=== PATIENT | male | born 1975 ===

== ENCOUNTER 2017-07-12 16:27 | Inpatient (IN) | payer OTHER ==
--- NOTE | 2017-07-12 16:59 | ED PDOC ---
Arrival/HPI - General Chief Complaint: Chest Pain Time Seen by Provider: 07/12/17 16:29 Historian: Patient - History of Present Illness Narrative History of Present Illness (Text): 07/12/17 17:00 42 year old male, with past medical history of seizure and anxiety, presents to the Emergency department complaining of chest pain and shortness of breath since last few days. Patient informs worsening symptoms associated with flu- like symptoms since yesterday, when he had a temperature of 102 fever. Patient informs visiting an Urgent Care, who referred him to the Emergency department. Patient denies any nausea, vomiting, diarrhea, abdominal pain, or any other complaints. Patient informs difficulty working last night. PMD: Dr. Miranda Time/Duration: Other (past few days) Symptom Onset: Gradual Quality: Aching Past Medical History - Provider Review Nursing Documentation Reviewed: Yes - Infectious Disease Hx of Infectious Diseases: None - Neurological Hx Seizures: Yes - Psychiatric Hx Substance Use: No - Surgical History Hx Orthopedic Surgery: Yes Hx Tonsillectomy: Yes - Anesthesia Hx Anesthesia: No Family/Social History - Physician Review Nursing Documentation Reviewed: Yes Family/Social History: No Known Family HX Smoking Status: Unknown If Ever Smoked Hx Alcohol Use: No Hx Substance Use: No Allergies/Home Meds Allergies/Adverse Reactions: Allergies No Known Allergies Allergy (Verified 07/12/17 16:47) Home Medications: Home Meds Medication Instructions Recorded Confirmed ALPRAZolam [Xanax] 1 mg PO PRN PRN 07/12/17 07/12/17 Lamotrigine [Lamictal] 150 mg PO BID 07/12/17 07/12/17 Meloxicam [Mobic] 15 mg PO DAILY 07/12/17 07/12/17 oxyCODONE [oxyCODONE Immediate 0 mg PO PRN PRN 07/12/17 07/12/17 Release Tab] Review of Systems - Physician Review All systems were reviewed & negative as marked: Yes - Review of Systems Constitutional: Fevers Respiratory: SOB Cardiovascular: Chest Pain Gastrointestinal: absent: Abdominal Pain, Diarrhea, Nausea, Vomiting Physical Exam Vital Signs Reviewed: Yes Vital Signs Temp Pulse Resp BP Pulse Ox 07/12/17 21:23 87 18 127/72 96 07/12/17 20:32 90 20 134/85 97 07/12/17 19:30 94 H 18 129/59 L 96 07/12/17 19:27 110 H 134/85 07/12/17 18:49 113 H 20 122/54 L 99 07/12/17 17:40 118 H 20 120/74 98 07/12/17 16:40 101.6 F H 112 H 20 119/70 98 Temperature: Febrile Blood Pressure: Normal Pulse: Tachycardic Respiratory Rate: Normal Appearance: Positive for: Well-Appearing, Non-Toxic, Comfortable Pain Distress: None Mental Status: Positive for: Alert and Oriented X 3 - Systems Exam Head: Present: Atraumatic, Normocephalic Pupils: Present: PERRL Extroacular Muscles: Present: EOMI Conjunctiva: Present: Normal Mouth: Present: Moist Mucous Membranes Neck: Present: Normal Range of Motion Respiratory/Chest: Present: Clear to Auscultation, Good Air Exchange. No: Respiratory Distress, Accessory Muscle Use Cardiovascular: Present: Regular Rate and Rhythm, Normal S1, S2. No: Murmurs Abdomen: No: Tenderness, Distention, Peritoneal Signs Back: Present: Normal Inspection Upper Extremity: Present: Normal Inspection. No: Cyanosis, Edema Lower Extremity: Present: Normal Inspection. No: Edema Neurological: Present: GCS=15, CN II-XII Intact, Speech Normal Skin: Present: Warm, Dry, Normal Color. No: Rashes Psychiatric: Present: Alert, Oriented x 3, Normal Insight, Normal Concentration Medical Decision Making ED Course and Treatment: 07/12/17 16:50 Impression: 42 year old male presents to the Emergency department for chest pain , shortness of breath and flu-like symptoms. Differential Diagnosis included but are not limited to: Perimyocarditis Plan: -- EKG -- Labs -- Chest X-ray -- Urinalysis -- Reassess and disposition Progress Notes: 07/12/17 16:50 EKG: Ordered, reviewed, and independently interpreted the EKG. Rate : 104 BPM Rhythm : Sinus Tachycardia. Interpretation : Non-specific ST/T wave changes. Comparison : EKG performed in Urgent Care shows sinus tachycardia at 119, questionable ST elevation. 07/16/17 08:[address] quinn on arrival. ekg and hx more consistent with pericarditis. will not activate code heart. later trop resulted positive. case rediscussed withfabiano quinn, requests lovenox, bblocker, asa. accetpd by icu. bedside us no pericardail effusion - Lab Interpretations Microbiology Results: Microbiology Results 07/12/17 17:10 Blood Blood Culture - Preliminary NO GROWTH AFTER 3 DAYS 07/12/17 16:50 Blood Blood Culture - Preliminary NO GROWTH AFTER 3 DAYS Lab Results: 07/12/17 17:10 07/12/17 17:10 Lab Results 07/12/17 17:10: Sodium 142, Potassium 3.5 L, Chloride 101, Carbon Dioxide 25, Anion Gap 19, BUN 11, Creatinine 0.8, Est GFR ( Amer) > 60, Est GFR (Non- Af Amer) > 60, Random Glucose 114 H, Calcium 10.2, Magnesium 1.9, Total Bilirubin 0.3, AST 58, ALT 82 H, Alkaline Phosphatase 102, Lactate Dehydrogenase 580, Total Creatine Kinase 314 H, CK-MB (CK-2) 10.0 H, CK-MB (CK-2 ) % 3.2 H, Troponin I 3.03 H*, NT-Pro-B Natriuret Pep 683 H, Total Protein 8.4 H , Albumin 4.7, Globulin 3.7, Albumin/Globulin Ratio 1.2, Lipase 71 07/12/17 17:10: PT 13.5 H, INR 1.18 H, APTT 28.8, D-Dimer, Quantitative 375 H 07/12/17 17:10: WBC 14.0 H, RBC 4.95, Hgb 15.2, Hct 43.6, MCV 88.1, MCH 30.7, MCHC 34.9, RDW 12.3, Plt Count 246, MPV 11.1 H, Gran % 52.9, Lymph % (Auto) 28.2 , Patrick % (Auto) 18.0 H, Eos % (Auto) 0.6 L, Baso % (Auto) 0.3, Gran # 7.42 H, Lymph # (Auto) 4.0 H, Patrick # (Auto) 2.5 H, Eos # (Auto) 0.1, Baso # (Auto) 0.04 07/12/17 17:10: Influenza Typ A,B (EIA) Negative for flu a/b - RAD Interpretation Narrative RAD Interpretations (Text): 07/12/17 18:11 Chest X-ray reviewed by radiologist, shows no active pulmonary disease. Radiology Orders: 07/12/17 16:50 CHEST PORTABLE [RAD] Stat 07/12/17 18:17 ANGIO CHEST PE PROTOCOL [CT] Stat - Medication Orders Current Medication Orders: Discontinued Medications Acetaminophen (Tylenol 325mg Tab) 975 mg PO STAT STA Stop: 07/12/17 17:09 Last Admin: 07/12/17 17:16 Dose: 975 mg MAR Pain/Vitals Document 07/12/17 17:16 SZXochitl (Rec: 07/12/17 17:17 [id number]) Pain Reassessment Is This A Pain ReAssessment? No Sleep Is patient sleeping during reassessment? No Presence of Pain Presence of Pain Yes Pain Scale Used Pain Scale Used Numeric Location Description Intermittent Intensity 4 Re-Assess: MAR Pain/Vitals Document 07/12/17 18:16 SZA (Rec: 07/12/17 19:30 A [id number]) Pain Reassessment Is This A Pain ReAssessment? Yes Sleep Is patient sleeping during reassessment? No Presence of Pain Presence of Pain Yes Pain Scale Used Pain Scale Used Numeric Location Intensity 2 Scale Used Numeric Acetaminophen (Tylenol 325mg Tab) 650 mg PO Q6H PRN PRN Reason: Fever >100.4 F Alprazolam (Xanax) 0.5 mg PO TID PRN; Protocol PRN Reason: Anxiety Last Admin: 07/13/17 21:38 Dose: 0.5 mg Behavioural Document 07/13/17 21:38 SSE (Rec: 07/13/17 21:38 SSE [id number]) Maintenance Maintenance Dose Yes Aspirin (Aspirin) 325 mg PO STAT STA Stop: 07/12/17 18:21 Last Admin: 07/12/17 18:30 Dose: Atorvastatin Calcium (Lipitor) 20 mg PO DIN BRIAN Last Admin: 07/13/17 17:11 Dose: 20 mg Clopidogrel Bisulfate (Plavix) 300 mg PO STAT STA Stop: 07/13/17 09:16 Last Admin: 07/13/17 09:23 Dose: 300 mg Enoxaparin Sodium (Lovenox) 90 mg SC STAT STA PRN Reason: Protocol Stop: 07/12/17 19:04 Last Admin: 07/12/17 19:29 Dose: 90 mg Subcutaneous Administrations Document 07/12/17 19:29 SS (Rec: 07/12/17 19:30 SS [id number]) Injection Site MAR Injection Site Right Abdomen Charges for Administration # of Subcutaneous Administrations 1 Doxycycline Hyclate 100 mg/ (Sodium Chloride) 100 mls @ 100 mls/hr IVPB STAT STA PRN Reason: Protocol Stop: 07/12/17 19:54 Last Admin: 07/12/17 20:34 Dose: 100 mls/hr eMAR Start Stop Document 07/12/17 20:34 SS (Rec: 07/12/17 20:34 SS [facility] [id number]) Intravenous Solution Start Date 07/12/17 Start Time 20:34 End Date 07/12/17 End time 21:34 Total Infusion Time 60 Ceftriaxone Sodium (Rocephin 1 Gram Ivpb) 1 gm in 100 mls @ 100 mls/hr IVPB STAT STA PRN Reason: Protocol Stop: 07/12/17 19:54 Last Admin: 07/12/17 19:28 Dose: 100 mls/hr eMAR Start Stop Document 07/12/17 19:28 SS (Rec: 07/12/17 19:28 SS [facility] [id number]) Intravenous Solution Start Date 07/12/17 Start Time 19:28 End Date 07/12/17 End time 20:28 Total Infusion Time 60 Sodium Chloride (Sodium Chloride 0.9%) 1,000 mls @ 100 mls/hr IV .Q10H [facility] Stop: 07/13/17 18:00 Last Admin: 07/13/17 21:33 Dose: 100 mls/hr eMAR Start Stop Document 07/13/17 21:33 SSE (Rec: 07/13/17 21:33 SSE [id number]) Intravenous Solution Start Date 07/13/17 Start Time 21:33 Potassium Chloride (Potassium Chloride 20 Meq/100 Ml) 20 meq in 100 mls @ 50 mls/hr IVPB ONCE ONE Stop: 07/12/17 21:14 Last Admin: 07/12/17 22:43 Dose: 50 mls/hr eMAR Start Stop Document 07/12/17 22:43 JPATRICIA (Rec: 07/12/17 22:44 YESSI [facility]) Intravenous Solution Start Date 07/12/17 Start Time 22:44 End Date 07/13/17 End time 00:44 Total Infusion Time 120 Doxycycline Hyclate 100 mg/ (Sodium Chloride) 100 mls @ 100 mls/hr IVPB Q12 BRIAN PRN Reason: Protocol Last Admin: 07/13/17 21:34 Dose: 100 mls/hr eMAR Start Stop Document 07/13/17 21:34 SSE (Rec: 07/13/17 21:34 SSE [id number]) Intravenous Solution Start Date 07/13/17 Start Time 21:34 Ceftriaxone Sodium (Rocephin 1 Gram Ivpb) 1 gm in 100 mls @ 100 mls/hr IVPB DAILY BRIAN PRN Reason: Protocol Last Admin: 07/13/17 09:18 Dose: 100 mls/hr eMAR Start Stop Document 07/13/17 09:18 JFG (Rec: 07/13/17 09:18 JFG [facility] [place] [id number]) Intravenous Solution Start Date 07/13/17 Start Time 09:18 End Date 07/13/17 End time 10:18 Total Infusion Time 60 Ibuprofen (Motrin Tab) 600 mg PO ONCE ONE Stop: 07/14/17 08:13 Last Admin: 07/14/17 08:31 Dose: 600 mg MAR Pain/Vitals Document 07/14/17 08:31 JUR (Rec: 07/14/17 08:31 JUR [facility] [id number]) Pain Reassessment Is This A Pain ReAssessment? No Sleep Is patient sleeping during reassessment? No Presence of Pain Presence of Pain Yes Pain Scale Used Pain Scale Used Numeric Location Pain Location Body Technical Project Manager Description Constant Intensity 5 Scale Used Numeric Pain Behavior Facial Grimacing Aggravating Factors None Alleviating Factors Medication Indomethacin (Indocin) 50 mg PO TID [facility] Last Admin: 07/14/17 15:16 Dose: 50 mg MAR Pain Assessment Document 07/14/17 15:16 JUR (Rec: 07/14/17 15:16 JUR [facility] [place] [id number]) Pain Reassessment Is this a pain reassessment? No Sleep Is patient sleeping during reassessment? No Presence of Pain Presence of Pain No Lamotrigine (Lamictal) 150 mg PO BID [facility] Last Admin: 07/14/17 09:53 Dose: 150 mg Behavioural Document 07/14/17 09:53 JUR (Rec: 07/14/17 09:54 JUR [facility] [place] [id number]) Maintenance Maintenance Dose Yes Metoprolol Tartrate (Lopressor) 25 mg PO STAT STA Stop: 07/12/17 19:08 Last Admin: 07/12/17 19:27 Dose: 25 mg MAR Pulse and Blood Pressure Document 07/12/17 19:27 SS (Rec: 07/12/17 19:28 SS [facility] [id number]) Pulse Pulse Rate (60-90) 110 Blood Pressure Blood Pressure (100/60-150/90) 134/85 Metoprolol Tartrate (Lopressor) 25 mg PO BID [facility] Last Admin: 07/14/17 09:55 Dose: 25 mg MAR Pulse and Blood Pressure Document 07/14/17 09:55 JUR (Rec: 07/14/17 09:55 JUR [facility] [id number]) Pulse Pulse Rate (60-90) 90 Blood Pressure Blood Pressure (100/60-150/90) 117/73 Oseltamivir Phosphate (Tamiflu) 75 mg PO BID [facility] PRN Reason: Protocol Oseltamivir Phosphate (Tamiflu Cap) 75 mg PO BID [facility] PRN Reason: Protocol Last Admin: 07/14/17 09:53 Dose: 75 mg Pantoprazole Sodium (Protonix Inj) 40 mg IVP DAILY [facility] Last Admin: 07/14/17 09:56 Dose: 40 mg IVP Administration Document 07/14/17 09:56 JUR (Rec: 07/14/17 09:56 JUR [facility] [place] [id number]) Charges for Administration # of IVP Administrations 1 Pantoprazole Sodium (Protonix Ec Tab) 40 mg PO ACB [facility] - Scribe Statement The provider has reviewed the documentation as recorded by the Lisaibe Dimitri Khanna. All medical record entries made by the Lisaibfuentes were at my direction and personally dictated by me. I have reviewed the chart and agree that the record accurately reflects my personal performance of the history, physical exam, medical decision making, and the department course for this patient. I have also personally directed, reviewed, and agree with the discharge instructions and disposition. Disposition/Present on Arrival - Present on Arrival Any Indicators Present on Arrival: No History of DVT/PE: No History of Uncontrolled Diabetes: No Urinary Catheter: No History of Decub. Ulcer: No History Surgical Site Infection Following: None - Disposition Have Diagnosis and Disposition been Completed?: Yes Diagnosis: Myocarditis, Pericarditis, NSTEMI (non-ST elevated myocardial infarction) Disposition: HOSPITALIZED Disposition Time: 07:00 Condition: CRITICAL
--- NOTE | 2017-07-12 17:33 | RAD ---
HISTORY: Chest pain COMPARISON: No prior. FINDINGS: LUNGS: The lungs are clear. PLEURA: No significant pleural effusion identified, no pneumothorax apparent. CARDIOVASCULAR: Normal. OSSEOUS STRUCTURES: No significant abnormalities. VISUALIZED UPPER ABDOMEN: Normal. OTHER FINDINGS: None. IMPRESSION: No active pulmonary disease.
[2017-07-12 18:01] LABS: ALB/GLOB RATIO 1.2 (1.1-1.8); ALBUMIN 4.7 g/dL (3.0-4.8); ALT/SGPT 82 U/L (7-56); AST/SGOT 58 U/L (17-59); BLOOD UREA NITROGEN 11 mg/dL (7-21); CALCIUM 10.2 mg/dL (8.4-10.5); GFR AFRICAN-AMERICAN > 60; GFR NON-AFRICAN AMERICAN > 60; LIPASE 71 U/L (23-300)
[2017-07-12 18:04] LABS: BASO # 0.04 K/mm3 (0.0-2.0); BASO % 0.3 % (0.0-3.0); EOS # 0.1 (0.0-0.7); EOS % 0.6 % (1.5-5.0); GRAN # 7.42 (1.4-6.5); GRAN % 52.9 % (50.0-68.0); HEMOGLOBIN 15.2 g/dL (14.0-18.0); LYMPH % 28.2 % (22.0-35.0); MEAN CELL VOLUME 88.1 fl (80.0-105.0); MEAN CORPUSCULAR HEMOGLOBIN 30.7 pg (25.0-35.0); MEAN CORPUSCULAR HGB CONC 34.9 g/dl (31.0-37.0); MEAN PLATELET VOLUME 11.1 fl (7.0-11.0); MONO # 2.5 (0.1-0.6); RBC 4.95 10^6/uL (3.5-6.1); RED CELL DISTRIBUTION WIDTH 12.3 % (11.5-14.5)
[2017-07-12 18:12] LABS: INR 1.18 (0.93-1.08); PROTHROMBIN TIME 13.5 SECONDS (9.4-12.5)
[2017-07-12 18:13] LABS: PARTIAL THROMBOPLASTIN TIME 28.8 Seconds (25.1-36.5)
[2017-07-12 18:19] LABS: B-TYPE NATRIURETIC PEPTIDE 683 pg/mL (0-450); CK MB% 3.2 % (2.5-3.0)
[2017-07-12] MEDS ORDERED: Iohexol 350 MG/100 ML VIAL ONE (18:21)
[2017-07-12 18:50] LABS: TROPONIN I 3.03 ng/mL
[2017-07-12] MEDS ORDERED: cefTRIAXone 1 gm 1 GM/100 ML BAG IVPB STA (18:55)
[2017-07-12] MEDS ORDERED: Enoxaparin 100 mg Syringe SC STA (19:03)
--- NOTE | 2017-07-12 20:06 | CP.PCM.HP ---
History of Present Illness - History of Present Illness History of Present Illness: This is 42yo with past medical history of anxiety and seizures was sent to the ED by urgent care for EKG changes. Patient noted to have fever for 3 days. He noticed he was having alternating fever/chills. He checked his temp and it was 102. He tried to drink cold water to lower his temp and OTC Excedrin. Patient said he had substernal chest pain for 1-2 days and it did not radiate, but did notice exertional dyspnea. He thought it was secondary to acid reflux and took Tums and Pepto bismal with some mild relief. He denies any nausea/vomiting/ diarrhea, numbness/tingling, vision changes, dysuria, hematuria, cough, nasal congestion shortness of breath at rest, or recent travel. Patient reports some sick contact at work who was coughing. He also reports that have been having a "mice problem" at work and had mouse droppings on his desk and had to clean them off. Past medical history: Anxiety, seizures Past surgical history: tonsillectomy, R ankle Home meds: Lamictal, Xanax 1mg prn Allergies: NKDA Social history: Denies EtOH, drug or tobacco use. Lives with family Family history: Mom: CAD, thyroid disease. Maternal grandma: Leukemia PMD: Dr. Miranda Cardiology: Dr. Owusu Present on Admission - Present on Admission Any Indicators Present on Admission: No Review of Systems - Review of Systems All systems: reviewed and no additional remarkable complaints except Review of Systems: As per HPI Past Patient History - Infectious Disease Hx of Infectious Diseases: None - Past Social History Smoking Status: Unknown If Ever Smoked - NEUROLOGICAL Hx Seizures: Yes - PSYCHIATRIC Hx Substance Use: No - SURGICAL HISTORY Hx Orthopedic Surgery: Yes Hx Tonsillectomy: Yes - ANESTHESIA Hx Anesthesia: No Meds Allergies/Adverse Reactions: Allergies Allergy/AdvReac Type Severity Reaction Status Date / Time No Known Allergies Allergy Verified 07/12/17 16:47 Physical Exam - Constitutional Appears: No Acute Distress - Head Exam Head Exam: ATRAUMATIC, NORMAL INSPECTION, NORMOCEPHALIC - Eye Exam Eye Exam: Normal appearance, PERRL Pupil Exam: NORMAL ACCOMODATION, PERRL - ENT Exam ENT Exam: Mucous Membranes Moist - Respiratory Exam Respiratory Exam: Clear to Auscultation Bilateral, NORMAL BREATHING PATTERN. absent: Rales, Rhonchi, Wheezes - Cardiovascular Exam Cardiovascular Exam: Tachycardia, REGULAR RHYTHM, Rubs, +S1, +S2. absent: Gallop, Systolic Murmur - GI/Abdominal Exam GI & Abdominal Exam: Normal Bowel Sounds, Soft. absent: Mass, Rebound, Rigid, Tenderness - Extremities Exam Extremities exam: Positive for: normal inspection. Negative for: calf tenderness, pedal edema - Neurological Exam Neurological exam: Alert, CN II-XII Intact, Oriented x3 - Psychiatric Exam Psychiatric exam: Normal Affect, Normal Mood - Skin Skin Exam: Dry, Normal Color, Warm Results - Vital Signs Recent Vital Signs: Last Vital Signs Temp 101.6 F H 07/12/17 16:40 Pulse 110 H 07/12/17 19:27 Resp 20 07/12/17 18:49 BP 134/85 07/12/17 19:27 Pulse Ox 99 07/12/17 18:49 - Labs Result Diagrams: 07/12/17 17:10 07/12/17 17:10 Assessment & Plan - Assessment and Plan (Free Text) Assessment: This is a 42yo male with past medical history of seizure and anxiety who came to ED for chest pain x 3 days while having fevers. Patient was found to have diffuse ST elevations and elevated troponin. This can be secondary to myocarditis secondary to viral illness. Plan: 1. Chest pain - secondary to PE v. myocarditis v. pericarditis from viral prodrome - evaluated by ICU at bedside- no pericardial effusion seen on bedside echo - Cardio consulted- Dr. Coe discussed case with Dr. Dawn - Troponin 3.03- will trend - EKG showed diffuse ST elevations - CXR negative - CTA normal- no evidence of PE - lactate normal - Given Rocephin and Doxy in ED- Continue Tamiflu - ID consulted - Will check for Coxsackie virus, influenza as cause - Tylenol prn fever - s/p therapeutic dose of Lovenox - Echo ordered - Procal, U/A, urine culture and blood culture pending - UDS pending 2. Hx of seizures - Will check Lamictal level - Restart Home Lamictal 3. Hx of Anxiety - Xanax Prn GI ppx: Protonix DVT ppx: Lovenox/SCDs Case seen, discussed and reviewed with attending. Lori Humphrey PGY2 - Date & Time Date: 07/12/17 Time: 21:33
[2017-07-12 20:25] LABS: VENOUS BLOOD GAS PO2 116 mm/Hg (30-55); VENOUS BLOOD PH 7.46 (7.32-7.43)
[2017-07-12] MEDS: Sodium Chloride 0.9% 1,000 ML IV SCH (20:34)
[2017-07-12 21:50] LABS: URINE BILIRUBIN NEGATIVE (NEGATIVE); URINE BLOOD NEGATIVE (NEGATIVE); URINE GLUCOSE (UA) NEGATIVE (NEGATIVE); URINE LEUKOCYTE ESTERASE NEGATIVE Leu/uL (NEGATIVE); URINE PROTEIN NEGATIVE mg/dL (<30 mg/dL); URINE UROBILINOGEN 0.2 E.U./dL (<1 E.U./dL)
[2017-07-12 21:52] LABS: URINE APPEARANCE CLEAR (CLEAR); URINE COLOR YELLOW (YELLOW)
[2017-07-12 22:14] LABS: BARBITURATES, UR NEGATIVE (NEGATIVE); BENZODIAZEPINES, UR NEGATIVE (NEGATIVE); OPIATES, UR NEGATIVE (NEGATIVE); PHENCYCLIDINE, UR NEGATIVE (NEGATIVE)
[2017-07-12 23:32] VITALS: BMI 36.0
[2017-07-13 00:29] LABS: CK MB% 2.9 % (2.5-3.0); CK-MB 6.8 ng/mL (0.0-3.6); TROPONIN I 1.94 ng/mL
--- NOTE | 2017-07-13 01:31 | CON ---
DATE: 07/12/2017 HISTORY OF PRESENT ILLNESS: The patient is a 42-year-old gentleman with history of anxiety and seizure disorder which, however, has been controlled for many years on Lamictal, who presented this time to [facility] ER after 2 days of malaise, fatigue, muscle ache, pleuritic chest pain. His symptoms started 2 days ago when he felt very weak. His fatigue prevented him from fully participate in his work duties and daily activities. Later that day, he starts feeling subjective fever and his symptoms since then substantially worsened. Later next day, he confirmed having fever, some muscle aches, and started to have pleuritic chest pain. The pleuritic chest pain he describes as very sharp pain related to deep inspiration and lasting for hours preventing him from taking a deep breath. The patient reports that he also has some shortness of breath. The pain did not radiate to any other part of his body. He also reports having some epigastric fullness; however, no tenderness. He denies nausea, vomiting, diarrhea, or constipation. The patient was also unable to sleep last night due to his fever and discomfort associated with pleuritic chest pain and associated symptoms. PAST MEDICAL HISTORY: Anxiety and seizure disorder, currently controlled. ALLERGIES NKDA. MEDICATIONS AT HOME: Mobic, Xanax, Lamictal, oxycodone. SOCIAL HISTORY: No alcohol or illicit drug abuse. No tobacco smoking. FAMILY HISTORY: Noncontributory. REVIEW OF SYSTEMS: Review of 12-organ system other than mentioned in the history of present illness is negative. PHYSICAL EXAMINATION: VITAL SIGNS: Temperature 101.6, blood pressure 122/54, heart rate 113, respiratory rate 20, oxygen saturation 99% on room air. HEENT: Head and neck atraumatic. LUNGS: Clear to auscultation bilaterally. HEART: Regular rate and rhythm. S1, S2 normal. ABDOMEN: Soft, nontender, and nondistended. MUSCULOSKELETAL: No C/C/E. NEUROLOGIC: The patient moves all extremities spontaneously. SKIN: Moist. No rash. PSYCH: The patient is alert and oriented x3. Somewhat anxious. LABORATORY DATA: WBC 14, hemoglobin 15.2, and platelet count 246. Sodium 142, potassium 3.5 (supplemented), chloride 101, carbon dioxide 25. BUN 11, creatinine 0.8. Glucose 114. Troponin 3.03, CK-MB 10, CPK 314, slightly elevated. ALT 82, AST 58, total bilirubin 0.3. Albumin 4.7, lipase 71. INR 1.18 and D-dimer is 375. Rapid influenza test negative. EKG showed diffuse ST-elevation in all leads; however, not in ischemic pattern. Bedside echocardiogram did not reveal any pericardial effusion. No severe left ventricular systolic dysfunction. Did not get good image of the right ventricle; however, does not appear to be hypocontractile or dilated. Chest x-ray, no active pulmonary disease. ASSESSMENT AND PLAN: This is a 42-year-old gentleman who presented with pleuritic chest pain, fever, malaise, fatigue, tiredness, and muscle aches in the setting of elevated troponin, BNP. While concern for acute coronary syndrome is there and cannot be discarded, possibility of viral myocarditis or septic cardiomyopathy due to other infectious origin appears to be more likely. The patient was started on IV fluids, antibiotic. Septic workup initiated. Blood culture, urine culture, procalcitonin were ordered. ER physician ordered CAT scan with PE protocol to rule out pulmonary embolism, especially in the setting of elevated D-dimers and pleuritic chest pain as well as negative chest x-ray. That will also allow to better evaluate lung parenchyma to rule out community-acquired pneumonia despite negative chest x-ray. In terms of possibility of ACS, patient will be on TAC, bb. He got aspirin at home. Cardiology service is following him. Echo will be done and troponin trended. GI prophylaxis ccm time 40 min Preston Coe MD GARETH
[2017-07-13 06:53] LABS: HEMOGLOBIN 14.6 g/dL (14.0-18.0); MEAN CELL VOLUME 89.3 fl (80.0-105.0); MEAN CORPUSCULAR HEMOGLOBIN 30.7 pg (25.0-35.0); MEAN CORPUSCULAR HGB CONC 34.4 g/dl (31.0-37.0); RBC 4.76 10^6/uL (3.5-6.1); RED CELL DISTRIBUTION WIDTH 12.5 % (11.5-14.5); WHITE BLOOD COUNT 10.2 10^3/ul (4.5-11.0)
[2017-07-13 07:46] LABS: ALB/GLOB RATIO 1.2 (1.1-1.8); ALBUMIN 4.1 g/dL (3.0-4.8); ALT/SGPT 72 U/L (7-56); AST/SGOT 70 U/L (17-59); BLOOD UREA NITROGEN 11 mg/dL (7-21); CALCIUM 9.6 mg/dL (8.4-10.5); GFR AFRICAN-AMERICAN > 60; GFR NON-AFRICAN AMERICAN > 60
[2017-07-13 08:20] LABS: CK MB% 5.8 % (2.5-3.0); CK-MB 20.6 ng/mL (0.0-3.6); TROPONIN I 4.76 ng/mL
[2017-07-13 08:27] LABS: HDL CHOLESTEROL 34 mg/dL (29-60)
[2017-07-13] MEDS: Sodium Chloride 0.9% 1,000 ML IV SCH ×2 (08:35→21:33)
[2017-07-13 08:38] LABS: LDL CHOLESTEROL 133 mg/dL (0-129)
--- NOTE | 2017-07-13 09:03 | CT ---
PROCEDURE: CT Chest with contrast (Pulmonary Angiogram) HISTORY: cp elevated dimer COMPARISON: None available. TECHNIQUE: Axial computed tomography images were obtained of the chest in the pulmonary arterial phase of enhancement. Coronal and sagittal reformatted images were created and reviewed. Intravenous contrast dose: 100 mL Omnipaque 350 Radiation dose: Total exam DLP = 479.97 mGy-cm. This CT exam was performed using one or more of the following dose reduction techniques: Automated exposure control, adjustment of the mA and/or kV according to patient size, and/or use of iterative reconstruction technique. FINDINGS: PULMONARY ARTERIES: There are no filling defects in the central pulmonary arteries to suggest acute pulmonary embolism. AORTA: No acute findings. No thoracic aortic aneurysm. LUNGS: The lungs are clear. No nodule, mass or pulmonary consolidation. PLEURAL SPACES: No effusion or pneuomothorax. HEART: The heart is normal in size. No significant pericardial effusion. LYMPH NODES: No pathologic lymphadenopathy. BONES, CHEST WALL: Within normal limits for the patient's age. No fracture or destructive lesion OTHER FINDINGS: Unremarkable. IMPRESSION: No CTA evidence for acute pulmonary embolism. Clear lungs. A preliminary report was provided by [facility].
--- NOTE | 2017-07-13 09:21 | PN ---
DATE: 07/13/2017 SUBJECTIVE: The patient is seen at bedside. He is comfortable. He talks full sentences. He is not in respiratory or otherwise distress. Very mildly anxious, but otherwise night was uneventful. Pleuritic chest pain comes and goes. PHYSICAL EXAMINATION: VITAL SIGNS: Heart rate 103, oxygen saturation 98%, respiratory rate 17, blood pressure 122/52. Patient is afebrile. ENT: Head and neck atraumatic. LUNGS: Clear to auscultation bilaterally. HEART: Regular rate and rhythm. S1, S2 normal. ABDOMEN: Soft, nontender, nondistended. MUSCULOSKELETAL: No C/C/E. NEUROLOGIC: The patient moves all extremities spontaneously. SKIN: Moist. PSYCH: The patient is alert and oriented x3. LABORATORY DATA: WBC 10.2, hemoglobin 14.6, platelet count 238. Sodium 142, potassium 4, chloride 105, carbon dioxide 25, BUN 11, creatinine 0.7 and glucose 106. AST 70, ALT 72, total bilirubin 0.4. Troponin 1.94. Lactic acid is 1.2. Confirmatory influenza test is pending. Rapid is negative. U-tox screen is negative. Urinalysis is negative for leukocyte esterase and nitrites. MEDICATIONS: Tylenol p.r.n., Xanax p.r.n., Lamictal, Tamiflu, Protonix, normal saline 100 mL per hour (patient received metoprolol, doxycycline and ceftriaxone yesterday and we will continue antibiotics and metoprolol today). ASSESSMENT AND PLAN: This 42-year-old gentleman who presented with some pleuritic chest pain, elevation of troponin and B-type natriuretic peptid in the setting of fever, presentation concerning for myocarditis versus pericarditis. On bedside echocardiogram, no pericardial effusion was identified. Official echocardiogram is pending. Possibility of acute coronary syndrome could not be ruled out and patient will be going for coronary angiography by Dr. Dawn today morning (spoke with Dr. Dawn). Meanwhile, patient is on therapeutic anticoagulation, aspirin and beta-blockers. We will continue to target euvolemia, euglycemia, normothermia and oxygen saturation more than 90%. We will continue with gastrointestinal prophylaxis. Septic workup initiated. Procalcitonin is pending. Confirmatory influenza test and Coxsackie virus serology was ordered. ID services consult is pending. Addendum: spoke with Dr. Dawn--coronaries are clean; troponin elevation likely due to epicarditis-->NSAIDS started. ok to downgrade to tele ccm time 40 min Preston Coe MD [facility]
[2017-07-13] MEDS ORDERED: cefTRIAXone 1 gm 1 GM/100 ML BAG IVPB SCH (10:00)
--- NOTE | 2017-07-13 10:09 | CP.PCM.CON ---
History of Present Illness - History of Present Illness History of Present Illness: 42 year old male with PMH of seizure disorder, anxiety disorder, obesity with BMI 36, S/P tonsillectomy, S/P ligament surgery on right ankle came in to [facility] because he was sent from an Urgent care center with abnormal EKG findings. He has been not feeling well for about a week now, complaining of occasional neck pain but no headache. He was also getting more fatigued than usual. Last wednesday , he was apparently exposed to an office co-worker who was coughing and sneezing and now has been on sick leave since then. He also states that their office has had rodent issues and he apparently had contact with some rodent droppings on his desk last week while cleaning his desk. He then developed fever 2 days ago and a few hours later some chest pain which was continuous, worse when sitting up and better when lying down. He also started having dyspnea on exertion and chills. He denies nausea or vomiting, had some sore throat, some nasal congestion, no dysphagia, no abdominal pain, no diarrhea, no dysuria. In the ED, EKG showed some ST elevations and Troponins are positive. He was also found to be febrile in the ED and with leukocyotosis. Infectious diseases consult is requested to further evaluate and manage. Review of Systems - Review of Systems All systems: reviewed and no additional remarkable complaints except (as per HPI ) Past Patient History - Infectious Disease Hx of Infectious Diseases: None - Past Social History Smoking Status: Unknown If Ever Smoked - NEUROLOGICAL Hx Seizures: Yes - PSYCHIATRIC Hx Substance Use: No - SURGICAL HISTORY Hx Orthopedic Surgery: Yes Hx Tonsillectomy: Yes - ANESTHESIA Hx Anesthesia: No Meds Allergies/Adverse Reactions: Allergies Allergy/AdvReac Type Severity Reaction Status Date / Time No Known Allergies Allergy Verified 07/12/17 16:47 - Medications Medications: Current Medications Acetaminophen (Tylenol 325mg Tab) 650 mg PO Q6H PRN PRN Reason: Fever >100.4 F Sodium Chloride (Sodium Chloride 0.9%) 1,000 mls @ 100 mls/hr IV .Q10H BRIAN Last Admin: 07/12/17 20:34 Dose: 100 mls/hr Oseltamivir Phosphate (Tamiflu Cap) 75 mg PO BID BRIAN PRN Reason: Protocol Pantoprazole Sodium (Protonix Inj) 40 mg IVP DAILY BRIAN Physical Exam - Constitutional Appears: Non-toxic - Head Exam Head Exam: NORMAL INSPECTION - ENT Exam ENT Exam: Mucous Membranes Moist - Neck Exam Neck exam: Negative for: Lymphadenopathy, Meningismus - Respiratory Exam Respiratory Exam: absent: Rales, Rhonchi - Cardiovascular Exam Cardiovascular Exam: +S1, +S2 - GI/Abdominal Exam GI & Abdominal Exam: Soft. absent: Organomegaly, Tenderness - Extremities Exam Extremities exam: Negative for: pedal edema Additional comments: well healed surgical scars on right ankle Results - Vital Signs Recent Vital Signs: Last Vital Signs Temp 101.6 F H 07/12/17 16:40 Pulse 87 07/12/17 21:23 Resp 18 07/12/17 21:23 BP 127/72 07/12/17 21:23 Pulse Ox 96 07/12/17 21:23 - Labs Result Diagrams: 07/13/17 05:50 07/13/17 05:50 Labs: Laboratory Results - last 24 hr 07/12/17 07/12/17 07/12/17 20:21 21:30 21:30 pO2 116 H VBG pH 7.46 H VBG pCO2 36.0 L VBG HCO3 25.6 VBG Total CO2 26.7 VBG O2 Sat (Calc) 99.5 H VBG Base Excess 2.0 VBG Potassium 3.9 Sodium 138.0 Chloride 106.0 Glucose 120 H Lactate 1.2 FiO2 21.0 Venous Blood Potassium 3.9 Urine Color Yellow Urine Appearance Clear Urine pH 6.0 Ur Specific Valier 1.010 Urine Protein Negative Urine Glucose (UA) Negative Urine Ketones Negative Urine Blood Negative Urine Nitrate Negative Urine Bilirubin Negative Urine Urobilinogen 0.2 Ur Leukocyte Esterase Negative Urine Opiates Screen Negative Urine Methadone Screen Negative Ur Barbiturates Screen Negative Ur Phencyclidine Scrn Negative Ur Amphetamines Screen Negative U Benzodiazepines Scrn Negative U Oth Cocaine Metabols Negative U Cannabinoids Screen Negative Assessment & Plan - Assessment and Plan (Free Text) Plan: Assessment Systemic inflammatory response syndrome, R/O sepsis from myopericarditis ( probably viral less likely bacterial), R/O acute myocardial infarction seizure disorder anxiety disorder obesity with BMI 36 S/P tonsillectomy S/P ligament surgery on right ankle Plan Started the patient on Tamiflu since it is still Influenza season; patient has been started on Rocephin and Doxycycline although risk of bacterial exposure causing myocarditis is less - reviewed CT chest which does not show mediastinal lymphadenopathy (making rodent-related diseases such as tularemia much less likely) and no pneumonia, patient has not been outdoors making Lyme disease much less likely as well, and also Erlichia; will follow up blood cx for cardiac cath today and will follow up results Follow up Coxsackie work up, EBV and CMV studies will check HIV test will monitor clinically
--- NOTE | 2017-07-13 10:12 | CARD ---
APPROVED REPORT EKG Measurement Heart [id number] <Conclusion> Sinus tachycardia PRWP Mild ST elevations 2,3,F, V 4,6, r/o injury pattern, pericarditis, etc.
--- NOTE | 2017-07-13 10:17 | CARD ---
APPROVED REPORT EKG Measurement Heart [id number] <Conclusion> Sinus tachycardia Possible Left atrial enlargement ST elevations 2,3,F, V 4 - 6 Inferior- lateral infarct, possibly acute ACUTE DC
[2017-07-13] MEDS ORDERED: Lidocaine 2% Inj (20ml) ONE (10:47)
[2017-07-13] MEDS ORDERED: Midazolam 2 MG/2 ML VIAL ONE ×3 (10:47→12:12)
[2017-07-13] MEDS ORDERED: Phenylephrine 10 mg/ml Inj ONE (10:47)
[2017-07-13] MEDS ORDERED: Iodixanol 320 MG/ML 200 ML BOTTLE IV ONE (10:48)
[2017-07-13] MEDS ORDERED: Nitroglycerin 50mg in D5W 0 MG/0 ML BOTTLE IV ONE (10:48)
[2017-07-13] MEDS ORDERED: Iohexol 350mgl/ml 50 ML ONE (10:48)
[2017-07-13] MEDS ORDERED: Iodixanol 320 MG/ML 100 ML BOTTLE IV ONE (10:48)
--- NOTE | 2017-07-13 10:55 | CON ---
DATE: 07/12/2017 CARDIOLOGY CONSULTATION HISTORY: The patient is a 42-year-old male, who presented with substernal pleuritic-like chest discomfort since Wednesday. His symptoms are increased with inspiration. He was transferred here from the emergency center from [facility] emergency room. The patient's past medical history is notable for history of seizures. He is on oxycodone for questionable reasons. His cardiac risk factors include family history with a mother with coronary bypass surgery. No diabetes mellitus. No hypertension. No previous cardiac history. SOCIAL HISTORY: The patient does not smoke. REVIEW OF SYSTEMS: Fourteen-point review of systems is reviewed in detail. His symptoms are dominated by inspirational chest pain and positional chest pain, which is left him mildly short of breath. He denies bleeding history. No peptic ulcer disease. PHYSICAL EXAMINATION: VITAL SIGNS: Blood pressure is 114/82, the heart rate is in the 90s, normal sinus rhythm. NECK: Negative JVD. LUNGS: Without rales. HEART: Reveals S1, S2 without murmurs, without rubs. EXTREMITIES: Without clubbing, cyanosis, edema. LABORATORY DATA: EKG shows normal sinus rhythm with concave up ST elevations and ID depressions consistent with pericarditis. His laboratories: Hemoglobin is 14.6, the white count is 10.2. The chemistries: Troponins keep rising up to 4.76. The cholesterol is 208. IMPRESSION: 1. Chest pain. 2. High probability for pericarditis. 3. Possible myocarditis involvement. 4. Need to rule out coronary artery disease. PLAN: Given these findings, the patient has been treated with aspirin, anticoagulation as well as antibiotics. We will discuss with the patient about the possibility of catheterization depending on his response. Ilan Dawn MD
--- NOTE | 2017-07-13 11:34 | CP.CCUPN ---
<Sidney Enciso - Last Filed: 07/13/17 11:46> CCU Subjective - Physician Review Subjective (Free Text): Critical care progress note: Pt seen and examined at bedside. No acute events overnight. Pt complains of some pleuritic chest pain and sob. No other complaints. 12 Point ROS performed and neg other than stated above. 07/13/17 11:32 CCU Objective - Vital Signs / Intake & Output Vital Signs (Last 4 hours): Vital Signs Pulse Resp BP Pulse Ox 07/13/17 10:10 108 H 99 07/13/17 10:00 105 H 124/67 99 07/13/17 09:50 98 07/13/17 09:40 98 07/13/17 09:30 99 07/13/17 09:20 102 H 36 H 100 07/13/17 09:10 108 H 29 H 99 07/13/17 09:00 106 H 128/78 99 07/13/17 08:50 95 H 16 98 07/13/17 08:40 97 H 17 98 07/13/17 08:30 97 H 14 98 07/13/17 08:20 98 H 21 99 07/13/17 08:10 104 H 16 96 07/13/17 08:01 98 H 114/82 96 07/13/17 08:00 106 H 28 H 97 07/13/17 07:50 114 H 30 H 97 07/13/17 07:40 103 H 15 98 Intake and Output (Last 8hrs): Intake & Output 07/12/17 07/13/17 07/13/17 22:59 06:59 14:59 Intake Total 2000 Output Total 200 Balance 1800 Weight 223 lb 1.6 oz Intake: IV 1400 Left Antecubital 1400 Right Antecubital 0 Oral 600 Output: Urine 200 Urine, Voided 200 Other: # Bowel Movements 0 - Physical Exam Head: Positive for: Atraumatic, Normocephalic Pupils: Positive for: PERRL Extroacular Muscles: Positive for: EOMI Conjunctiva: Positive for: Normal Mouth: Positive for: Moist Mucous Membranes Neck: Positive for: Normal Range of Motion Respiratory/Chest: Positive for: Clear to Auscultation, Good Air Exchange. Negative for: Respiratory Distress, Accessory Muscle Use Cardiovascular: Positive for: Regular Rate and Rhythm, Normal S1, S2. Negative for: Murmurs Abdomen: Negative for: Tenderness, Distention, Peritoneal Signs Back: Positive for: Normal Inspection Upper Extremity: Positive for: Normal Inspection. Negative for: Cyanosis, Edema Lower Extremity: Positive for: Normal Inspection. Negative for: Edema Neurological: Positive for: GCS=15, CN II-XII Intact, Speech Normal Skin: Positive for: Warm, Dry, Normal Color. Negative for: Rashes Psychiatric: Positive for: Alert, Oriented x 3, Normal Insight, Normal Concentration - Medications Active Medications: Active Medications Generic Name Dose Route Start Last Admin Trade Name Freq PRN Reason Stop Dose Admin Acetaminophen 650 mg 07/12/17 21:33 Tylenol 325mg Tab PO Q6H PRN Fever >100.4 F Alprazolam 0.5 mg 07/12/17 23:18 07/12/17 23:47 Xanax PO 0.5 mg TID PRN Administration Anxiety Protocol Sodium Chloride 1,000 mls @ 100 mls/hr 07/12/17 19:15 07/13/17 08:35 Sodium Chloride 0.9% IV 100 mls/hr .Q10H BRIAN Administration Doxycycline Hyclate 100 mg/ 100 mls @ 100 mls/hr 07/13/17 10:00 07/13/17 10: 17 Sodium Chloride IVPB 100 mls/hr Q12 BRIAN Administration Protocol Ceftriaxone Sodium 1 gm in 100 mls @ 100 mls/hr 07/13/17 10:00 07/13/17 09:18 Rocephin 1 Gram Ivpb IVPB 100 mls/hr DAILY BRIAN Administration Protocol Lamotrigine 150 mg 07/13/17 10:00 07/13/17 09:18 Lamictal PO 150 mg BID BRIAN Administration Oseltamivir Phosphate 75 mg 07/12/17 19:17 07/13/17 09:18 Tamiflu Cap PO 75 mg BID BRIAN Administration Protocol Pantoprazole Sodium 40 mg 07/13/17 10:00 07/13/17 09:18 Protonix Inj IVP 40 mg DAILY BRIAN Administration - Patient Studies Lab Studies: Lab Studies 07/13/17 07/13/17 07/13/17 Range/Units 07:25 05:50 05:50 WBC 10.2 D (4.5-11.0) 10^3/ul RBC 4.76 (3.5-6.1) 10^6/uL Hgb 14.6 (14.0-18.0) g/dL Hct 42.5 (42.0-52.0) % MCV 89.3 (80.0-105.0) fl MCH 30.7 (25.0-35.0) pg MCHC 34.4 (31.0-37.0) g/dl RDW 12.5 (11.5-14.5) % Plt Count 238 (120.0-450.0) 10^3/uL MPV 11.0 (7.0-11.0) fl pO2 (30-55) mm/Hg VBG pH (7.32-7.43) VBG pCO2 (40-60) VBG HCO3 (21-28) mmol/l VBG Total CO2 (22-28) mmol.L VBG O2 Sat (Calc) (40-65) % VBG Base Excess (0.0-2.0) mmol/L VBG Potassium (3.6-5.2) mmol/L Sodium 142 (132-148) mmol/L Chloride 105 (98-107) mmol/L Glucose (75-110) mg/dl Lactate (0.7-2.1) mmol/L FiO2 % Potassium 4.0 (3.6-5.0) mmol/L Carbon Dioxide 25 (21-33) mmol/L Anion Gap 16 (10-20) BUN 11 (7-21) mg/dL Creatinine 0.7 L (0.8-1.5) mg/dl Est GFR ( Amer) > 60 Est GFR (Non-Af Amer) > 60 Random Glucose 106 (70-110) mg/dL Calcium 9.6 (8.4-10.5) mg/dL Phosphorus 3.6 (2.5-4.5) mg/dL Magnesium 2.2 (1.7-2.2) mg/dL Total Bilirubin 0.4 (0.2-1.3) mg/dL AST 70 H D (17-59) U/L ALT 72 H (7-56) U/L Alkaline Phosphatase 89 (38-126) U/L Lactate Dehydrogenase 590 (333-699) U/L Total Creatine Kinase 356 H (35-230) U/L CK-MB (CK-2) 20.6 H (0.0-3.6) ng/mL CK-MB (CK-2) % 5.8 H (2.5-3.0) % Troponin I 4.76 H* D ng/mL Total Protein 7.7 (5.8-8.3) g/dL Albumin 4.1 (3.0-4.8) g/dL Globulin 3.5 gm/dL Albumin/Globulin Ratio 1.2 (1.1-1.8) Triglycerides 155 (35-160) mg/dL Cholesterol 208 H (130-200) mg/dL LDL Cholesterol Direct 133 H (0-129) mg/dL HDL Cholesterol 34 (29-60) mg/dL Venous Blood Potassium (3.6-5.2) mmol/L Urine Color (YELLOW) Urine Appearance (CLEAR) Urine pH (4.7-8.0) Ur Specific [place] (1.005-1.035) Urine Protein (<30 mg/dL) mg/dL Urine Glucose (UA) (NEGATIVE) mg/dL Urine Ketones (NEGATIVE) mg/dL Urine Blood (NEGATIVE) Urine Nitrate (NEGATIVE) Urine Bilirubin (NEGATIVE) Urine Urobilinogen (<1 E.U./dL) E.U./dL Ur Leukocyte Esterase (NEGATIVE) Enrico/uL Urine Opiates Screen (NEGATIVE) Urine Methadone Screen (NEGATIVE) Ur Barbiturates Screen (NEGATIVE) Ur Phencyclidine Scrn (NEGATIVE) Ur Amphetamines Screen (NEGATIVE) U Benzodiazepines Scrn (NEGATIVE) U Oth Cocaine Metabols (NEGATIVE) U Cannabinoids Screen (NEGATIVE) 07/12/17 07/12/17 07/12/17 Range/Units 23:55 21:30 21:30 WBC (4.5-11.0) 10^3/ul RBC (3.5-6.1) 10^6/uL Hgb (14.0-18.0) g/dL Hct (42.0-52.0) % MCV (80.0-105.0) fl MCH (25.0-35.0) pg MCHC (31.0-37.0) g/dl RDW (11.5-14.5) % Plt Count (120.0-450.0) 10^3/uL MPV (7.0-11.0) fl pO2 (30-55) mm/Hg VBG pH (7.32-7.43) VBG pCO2 (40-60) VBG HCO3 (21-28) mmol/l VBG Total CO2 (22-28) mmol.L VBG O2 Sat (Calc) (40-65) % VBG Base Excess (0.0-2.0) mmol/L VBG Potassium (3.6-5.2) mmol/L Sodium (132-148) mmol/L Chloride (98-107) mmol/L Glucose (75-110) mg/dl Lactate (0.7-2.1) mmol/L FiO2 % Potassium (3.6-5.0) mmol/L Carbon Dioxide (21-33) mmol/L Anion Gap (10-20) BUN (7-21) mg/dL Creatinine (0.8-1.5) mg/dl Est GFR ( Amer) Est GFR (Non-Af Amer) Random Glucose (70-110) mg/dL Calcium (8.4-10.5) mg/dL Phosphorus (2.5-4.5) mg/dL Magnesium (1.7-2.2) mg/dL Total Bilirubin (0.2-1.3) mg/dL AST (17-59) U/L ALT (7-56) U/L Alkaline Phosphatase (38-126) U/L Lactate Dehydrogenase 512 (333-699) U/L Total Creatine Kinase 234 H (35-230) U/L CK-MB (CK-2) 6.8 H (0.0-3.6) ng/mL CK-MB (CK-2) % 2.9 (2.5-3.0) % Troponin I 1.94 H* D ng/mL Total Protein (5.8-8.3) g/dL Albumin (3.0-4.8) g/dL Globulin gm/dL Albumin/Globulin Ratio (1.1-1.8) Triglycerides (35-160) mg/dL Cholesterol (130-200) mg/dL LDL Cholesterol Direct (0-129) mg/dL HDL Cholesterol (29-60) mg/dL Venous Blood Potassium (3.6-5.2) mmol/L Urine Color Yellow (YELLOW) Urine Appearance Clear (CLEAR) Urine pH 6.0 (4.7-8.0) Ur Specific [place] 1.010 (1.005-1.035) Urine Protein Negative (<30 mg/dL) mg/dL Urine Glucose (UA) Negative (NEGATIVE) mg/dL Urine Ketones Negative (NEGATIVE) mg/dL Urine Blood Negative (NEGATIVE) Urine Nitrate Negative (NEGATIVE) Urine Bilirubin Negative (NEGATIVE) Urine Urobilinogen 0.2 (<1 E.U./dL) E.U./dL Ur Leukocyte Esterase Negative (NEGATIVE) Enrico/uL Urine Opiates Screen Negative (NEGATIVE) Urine Methadone Screen Negative (NEGATIVE) Ur Barbiturates Screen Negative (NEGATIVE) Ur Phencyclidine Scrn Negative (NEGATIVE) Ur Amphetamines Screen Negative (NEGATIVE) U Benzodiazepines Scrn Negative (NEGATIVE) U Oth Cocaine Metabols Negative (NEGATIVE) U Cannabinoids Screen Negative (NEGATIVE) 07/12/17 Range/Units 20:21 WBC (4.5-11.0) 10^3/ul RBC (3.5-6.1) 10^6/uL Hgb (14.0-18.0) g/dL Hct (42.0-52.0) % MCV (80.0-105.0) fl MCH (25.0-35.0) pg MCHC (31.0-37.0) g/dl RDW (11.5-14.5) % Plt Count (120.0-450.0) 10^3/uL MPV (7.0-11.0) fl pO2 116 H (30-55) mm/Hg VBG pH 7.46 H (7.32-7.43) VBG pCO2 36.0 L (40-60) VBG HCO3 25.6 (21-28) mmol/l VBG Total CO2 26.7 (22-28) mmol.L VBG O2 Sat (Calc) 99.5 H (40-65) % VBG Base Excess 2.0 (0.0-2.0) mmol/L VBG Potassium 3.9 (3.6-5.2) mmol/L Sodium 138.0 (132-148) mmol/L Chloride 106.0 (98-107) mmol/L Glucose 120 H (75-110) mg/dl Lactate 1.2 (0.7-2.1) mmol/L FiO2 21.0 % Potassium (3.6-5.0) mmol/L Carbon Dioxide (21-33) mmol/L Anion Gap (10-20) BUN (7-21) mg/dL Creatinine (0.8-1.5) mg/dl Est GFR ( Amer) Est GFR (Non-Af Amer) Random Glucose (70-110) mg/dL Calcium (8.4-10.5) mg/dL Phosphorus (2.5-4.5) mg/dL Magnesium (1.7-2.2) mg/dL Total Bilirubin (0.2-1.3) mg/dL AST (17-59) U/L ALT (7-56) U/L Alkaline Phosphatase (38-126) U/L Lactate Dehydrogenase (333-699) U/L Total Creatine Kinase (35-230) U/L CK-MB (CK-2) (0.0-3.6) ng/mL CK-MB (CK-2) % (2.5-3.0) % Troponin I ng/mL Total Protein (5.8-8.3) g/dL Albumin (3.0-4.8) g/dL Globulin gm/dL Albumin/Globulin Ratio (1.1-1.8) Triglycerides (35-160) mg/dL Cholesterol (130-200) mg/dL LDL Cholesterol Direct (0-129) mg/dL HDL Cholesterol (29-60) mg/dL Venous Blood Potassium 3.9 (3.6-5.2) mmol/L Urine Color (YELLOW) Urine Appearance (CLEAR) Urine pH (4.7-8.0) Ur Specific [place] (1.005-1.035) Urine Protein (<30 mg/dL) mg/dL Urine Glucose (UA) (NEGATIVE) mg/dL Urine Ketones (NEGATIVE) mg/dL Urine Blood (NEGATIVE) Urine Nitrate (NEGATIVE) Urine Bilirubin (NEGATIVE) Urine Urobilinogen (<1 E.U./dL) E.U./dL Ur Leukocyte Esterase (NEGATIVE) Enrico/uL Urine Opiates Screen (NEGATIVE) Urine Methadone Screen (NEGATIVE) Ur Barbiturates Screen (NEGATIVE) Ur Phencyclidine Scrn (NEGATIVE) Ur Amphetamines Screen (NEGATIVE) U Benzodiazepines Scrn (NEGATIVE) U Oth Cocaine Metabols (NEGATIVE) U Cannabinoids Screen (NEGATIVE) Laboratory Results - last 24 hr 07/12/17 07/12/17 07/12/17 20:21 21:30 21:30 WBC RBC Hgb Hct MCV MCH MCHC RDW Plt Count MPV pO2 116 H VBG pH 7.46 H VBG pCO2 36.0 L VBG HCO3 25.6 VBG Total CO2 26.7 VBG O2 Sat (Calc) 99.5 H VBG Base Excess 2.0 VBG Potassium 3.9 Sodium 138.0 Chloride 106.0 Glucose 120 H Lactate 1.2 FiO2 21.0 Potassium Carbon Dioxide Anion Gap BUN Creatinine Est GFR ( Amer) Est GFR (Non-Af Amer) Random Glucose Calcium Phosphorus Magnesium Total Bilirubin AST ALT Alkaline Phosphatase Lactate Dehydrogenase Total Creatine Kinase CK-MB (CK-2) CK-MB (CK-2) % Troponin I Total Protein Albumin Globulin Albumin/Globulin Ratio Triglycerides Cholesterol LDL Cholesterol Direct HDL Cholesterol Venous Blood Potassium 3.9 Urine Color Yellow Urine Appearance Clear Urine pH 6.0 Ur Specific [place] 1.010 Urine Protein Negative Urine Glucose (UA) Negative Urine Ketones Negative Urine Blood Negative Urine Nitrate Negative Urine Bilirubin Negative Urine Urobilinogen 0.2 Ur Leukocyte Esterase Negative Urine Opiates Screen Negative Urine Methadone Screen Negative Ur Barbiturates Screen Negative Ur Phencyclidine Scrn Negative Ur Amphetamines Screen Negative U Benzodiazepines Scrn Negative U Oth Cocaine Metabols Negative U Cannabinoids Screen Negative 07/12/17 07/13/17 07/13/17 23:55 05:50 05:50 WBC 10.2 D RBC 4.76 Hgb 14.6 Hct 42.5 MCV 89.3 MCH 30.7 MCHC 34.4 RDW 12.5 Plt Count 238 MPV 11.0 pO2 VBG pH VBG pCO2 VBG HCO3 VBG Total CO2 VBG O2 Sat (Calc) VBG Base Excess VBG Potassium Sodium 142 Chloride 105 Glucose Lactate FiO2 Potassium 4.0 Carbon Dioxide 25 Anion Gap 16 BUN 11 Creatinine 0.7 L Est GFR ( Amer) > 60 Est GFR (Non-Af Amer) > 60 Random Glucose 106 Calcium 9.6 Phosphorus 3.6 Magnesium 2.2 Total Bilirubin 0.4 AST 70 H D ALT 72 H Alkaline Phosphatase 89 Lactate Dehydrogenase 512 590 Total Creatine Kinase 234 H 356 H CK-MB (CK-2) 6.8 H 20.6 H CK-MB (CK-2) % 2.9 5.8 H Troponin I 1.94 H* D 4.76 H* D Total Protein 7.7 Albumin 4.1 Globulin 3.5 Albumin/Globulin Ratio 1.2 Triglycerides Cholesterol LDL Cholesterol Direct HDL Cholesterol Venous Blood Potassium Urine Color Urine Appearance Urine pH Ur Specific [place] Urine Protein Urine Glucose (UA) Urine Ketones Urine Blood Urine Nitrate Urine Bilirubin Urine Urobilinogen Ur Leukocyte Esterase Urine Opiates Screen Urine Methadone Screen Ur Barbiturates Screen Ur Phencyclidine Scrn Ur Amphetamines Screen U Benzodiazepines Scrn U Oth Cocaine Metabols U Cannabinoids Screen 07/13/17 07:25 WBC RBC Hgb Hct MCV MCH MCHC RDW Plt Count MPV pO2 VBG pH VBG pCO2 VBG HCO3 VBG Total CO2 VBG O2 Sat (Calc) VBG Base Excess VBG Potassium Sodium Chloride Glucose Lactate FiO2 Potassium Carbon Dioxide Anion Gap BUN Creatinine Est GFR ( Amer) Est GFR (Non-Af Amer) Random Glucose Calcium Phosphorus Magnesium Total Bilirubin AST ALT Alkaline Phosphatase Lactate Dehydrogenase Total Creatine Kinase CK-MB (CK-2) CK-MB (CK-2) % Troponin I Total Protein Albumin Globulin Albumin/Globulin Ratio Triglycerides 155 Cholesterol 208 H LDL Cholesterol Direct 133 H HDL Cholesterol 34 Venous Blood Potassium Urine Color Urine Appearance Urine pH Ur Specific [place] Urine Protein Urine Glucose (UA) Urine Ketones Urine Blood Urine Nitrate Urine Bilirubin Urine Urobilinogen Ur Leukocyte Esterase Urine Opiates Screen Urine Methadone Screen Ur Barbiturates Screen Ur Phencyclidine Scrn Ur Amphetamines Screen U Benzodiazepines Scrn U Oth Cocaine Metabols U Cannabinoids Screen Review of Systems - Review of Systems All systems: reviewed and no additional remarkable complaints except (HPI) Critical Care Progress Note - Nutrition Nutrition: Nutrition Category Date Time Status NPO Diet [DIET] Diets 07/13/17 Breakfast Ordered Assessment/Plan - Assessment and Plan (Free Text) Assessment: 42yo male with PMHx of seizure and anxiety who presents with pleuritic chest pain, sob, and febrile to 102. Patient was found to have diffuse ST elevations and elevated troponin 2/2 ACS vs Myocarditis vs pericarditis. Plan for Cardiac cath today. Neuro: - AAO x 3 - Cont home Lamictal Pulm: - maintain SO2 >94% CV: - Hemodynamically stable - EKG shows diffuse ST elevations - Elevated troponin 3.03 --> 1.9 --> 4.76 - Cardiology consulted - Plan for cardiac cath today - Echo pending - Aspirin 325mg and Plavix 300mg stat - Cont to monitor GI: - ppx with protonix Renal: - Avoid nephrotoxic meds Endo: - Maintain euglycemia ID: - F/u septic work up - ID consulted for recs - Cont antibiotics as per ID - Currently on Rocephin, Doxy, and Tamiflu Heme: - Stable - Monitor H/H Case and plan was reviewed and discussed in detail with Dr Coe. <Preston Coe - Last Filed: 07/13/17 16:14> CCU Objective - Vital Signs / Intake & Output Vital Signs (Last 4 hours): Vital Signs Temp Pulse Resp BP Pulse Ox 07/13/17 16:00 80 21 111/62 98 07/13/17 15:50 86 22 98 07/13/17 15:40 86 21 99 07/13/17 15:30 83 21 98 07/13/17 15:20 85 28 H 99 07/13/17 15:10 90 18 98 07/13/17 15:00 92 H 26 H 113/68 98 07/13/17 14:50 87 21 98 07/13/17 14:45 86 18 111/73 98 07/13/17 14:40 85 17 98 07/13/17 14:30 85 20 118/68 99 07/13/17 14:20 85 29 H 99 07/13/17 14:15 85 16 110/73 98 07/13/17 14:10 85 12 98 07/13/17 14:00 98.2 F 90 17 110/77 90 L 07/13/17 13:59 86 18 98 07/13/17 13:50 91 H 29 H 99 07/13/17 13:45 83 22 111/67 97 07/13/17 13:40 73 17 96 07/13/17 13:30 98.4 F 78 22 99/63 L 94 L 07/13/17 13:20 84 20 96 07/13/17 13:15 83 18 101/70 97 07/13/17 13:10 85 18 97 07/13/17 13:00 98.4 F 83 24 109/80 96 07/13/17 12:59 88 17 98 07/13/17 12:50 90 32 H 96 07/13/17 12:48 98.4 F 91 H 13 129/72 95 07/13/17 12:47 87 20 129/72 94 L 07/13/17 12:41 93 H 15 Intake and Output (Last 8hrs): Intake & Output 07/13/17 07/13/17 07/13/17 06:59 14:59 22:59 Intake Total 2000 Output Total 200 Balance 1800 Intake: IV 1400 Left Antecubital 1400 Right Antecubital 0 Oral 600 Output: Urine 200 Urine, Voided 200 Other: # Bowel Movements 0 - Medications Active Medications: Active Medications Generic Name Dose Route Start Last Admin Trade Name Freq PRN Reason Stop Dose Admin Acetaminophen 650 mg 07/12/17 21:33 Tylenol 325mg Tab PO Q6H PRN Fever >100.4 F Alprazolam 0.5 mg 07/12/17 23:18 07/12/17 23:47 Xanax PO 0.5 mg TID PRN Administration Anxiety Protocol Atorvastatin Calcium 20 mg 07/13/17 17:00 Lipitor PO DIN BRIAN Sodium Chloride 1,000 mls @ 100 mls/hr 07/12/17 19:15 07/13/17 08:35 Sodium Chloride 0.9% IV 07/13/17 18:00 100 mls/hr .Q10H BRIAN Administration Doxycycline Hyclate 100 mg/ 100 mls @ 100 mls/hr 07/13/17 10:00 07/13/17 10: 17 Sodium Chloride IVPB 100 mls/hr Q12 BRIAN Administration Protocol Ceftriaxone Sodium 1 gm in 100 mls @ 100 mls/hr 07/13/17 10:00 07/13/17 09:18 Rocephin 1 Gram Ivpb IVPB 100 mls/hr DAILY BRIAN Administration Protocol Indomethacin 50 mg 07/13/17 14:00 07/13/17 15:07 Indocin PO 50 mg TID BRIAN Administration Lamotrigine 150 mg 07/13/17 10:00 07/13/17 09:18 Lamictal PO 150 mg BID BRIAN Administration Metoprolol Tartrate 25 mg 07/13/17 18:00 Lopressor PO BID BRIAN Oseltamivir Phosphate 75 mg 07/12/17 19:17 07/13/17 09:18 Tamiflu Cap PO 75 mg BID BRIAN Administration Protocol Pantoprazole Sodium 40 mg 07/13/17 10:00 07/13/17 09:18 Protonix Inj IVP 40 mg DAILY BRIAN Administration - Patient Studies Lab Studies: Lab Studies 04/1007/13/17 07/13/17 Range/Units 12:20 07:25 05:50 WBC (4.5-11.0) 10^3/ul RBC (3.5-6.1) 10^6/uL Hgb (14.0-18.0) g/dL Hct (42.0-52.0) % MCV (80.0-105.0) fl MCH (25.0-35.0) pg MCHC (31.0-37.0) g/dl RDW (11.5-14.5) % Plt Count (120.0-450.0) 10^3/uL MPV (7.0-11.0) fl ESR 30 H (0.0-15.0) mm/hr pO2 (30-55) mm/Hg VBG pH (7.32-7.43) VBG pCO2 (40-60) VBG HCO3 (21-28) mmol/l VBG Total CO2 (22-28) mmol.L VBG O2 Sat (Calc) (40-65) % VBG Base Excess (0.0-2.0) mmol/L VBG Potassium (3.6-5.2) mmol/L Sodium 142 (132-148) mmol/L Chloride 105 (98-107) mmol/L Glucose (75-110) mg/dl Lactate (0.7-2.1) mmol/L FiO2 % Potassium 4.0 (3.6-5.0) mmol/L Carbon Dioxide 25 (21-33) mmol/L Anion Gap 16 (10-20) BUN 11 (7-21) mg/dL Creatinine 0.7 L (0.8-1.5) mg/dl Est GFR ( Amer) > 60 Est GFR (Non-Af Amer) > 60 Random Glucose 106 (70-110) mg/dL Calcium 9.6 (8.4-10.5) mg/dL Phosphorus 3.6 (2.5-4.5) mg/dL Magnesium 2.2 (1.7-2.2) mg/dL Total Bilirubin 0.4 (0.2-1.3) mg/dL AST 70 H D (17-59) U/L ALT 72 H (7-56) U/L Alkaline Phosphatase 89 (38-126) U/L Lactate Dehydrogenase 590 (333-699) U/L Total Creatine Kinase 356 H (35-230) U/L CK-MB (CK-2) 20.6 H (0.0-3.6) ng/mL CK-MB (CK-2) % 5.8 H (2.5-3.0) % Troponin I 4.76 H* D ng/mL Total Protein 7.7 (5.8-8.3) g/dL Albumin 4.1 (3.0-4.8) g/dL Globulin 3.5 gm/dL Albumin/Globulin Ratio 1.2 (1.1-1.8) Triglycerides 155 (35-160) mg/dL Cholesterol 208 H (130-200) mg/dL LDL Cholesterol Direct 133 H (0-129) mg/dL HDL Cholesterol 34 (29-60) mg/dL Procalcitonin (0.19-0.49) NG/ML Venous Blood Potassium (3.6-5.2) mmol/L Urine Color (YELLOW) Urine Appearance (CLEAR) Urine pH (4.7-8.0) Ur Specific [place] (1.005-1.035) Urine Protein (<30 mg/dL) mg/dL Urine Glucose (UA) (NEGATIVE) mg/dL Urine Ketones (NEGATIVE) mg/dL Urine Blood (NEGATIVE) Urine Nitrate (NEGATIVE) Urine Bilirubin (NEGATIVE) Urine Urobilinogen (<1 E.U./dL) E.U./dL Ur Leukocyte Esterase (NEGATIVE) Enrico/uL Urine Opiates Screen (NEGATIVE) Urine Methadone Screen (NEGATIVE) Ur Barbiturates Screen (NEGATIVE) Ur Phencyclidine Scrn (NEGATIVE) Ur Amphetamines Screen (NEGATIVE) U Benzodiazepines Scrn (NEGATIVE) U Oth Cocaine Metabols (NEGATIVE) U Cannabinoids Screen (NEGATIVE) 07/13/17 07/12/17 07/12/17 Range/Units 05:50 23:55 21:30 WBC 10.2 D (4.5-11.0) 10^3/ul RBC 4.76 (3.5-6.1) 10^6/uL Hgb 14.6 (14.0-18.0) g/dL Hct 42.5 (42.0-52.0) % MCV 89.3 (80.0-105.0) fl MCH 30.7 (25.0-35.0) pg MCHC 34.4 (31.0-37.0) g/dl RDW 12.5 (11.5-14.5) % Plt Count 238 (120.0-450.0) 10^3/uL MPV 11.0 (7.0-11.0) fl ESR (0.0-15.0) mm/hr pO2 (30-55) mm/Hg VBG pH (7.32-7.43) VBG pCO2 (40-60) VBG HCO3 (21-28) mmol/l VBG Total CO2 (22-28) mmol.L VBG O2 Sat (Calc) (40-65) % VBG Base Excess (0.0-2.0) mmol/L VBG Potassium (3.6-5.2) mmol/L Sodium (132-148) mmol/L Chloride (98-107) mmol/L Glucose (75-110) mg/dl Lactate (0.7-2.1) mmol/L FiO2 % Potassium (3.6-5.0) mmol/L Carbon Dioxide (21-33) mmol/L Anion Gap (10-20) BUN (7-21) mg/dL Creatinine (0.8-1.5) mg/dl Est GFR ( Amer) Est GFR (Non-Af Amer) Random Glucose (70-110) mg/dL Calcium (8.4-10.5) mg/dL Phosphorus (2.5-4.5) mg/dL Magnesium (1.7-2.2) mg/dL Total Bilirubin (0.2-1.3) mg/dL AST (17-59) U/L ALT (7-56) U/L Alkaline Phosphatase (38-126) U/L Lactate Dehydrogenase 512 (333-699) U/L Total Creatine Kinase 234 H (35-230) U/L CK-MB (CK-2) 6.8 H (0.0-3.6) ng/mL CK-MB (CK-2) % 2.9 (2.5-3.0) % Troponin I 1.94 H* D ng/mL Total Protein (5.8-8.3) g/dL Albumin (3.0-4.8) g/dL Globulin gm/dL Albumin/Globulin Ratio (1.1-1.8) Triglycerides (35-160) mg/dL Cholesterol (130-200) mg/dL LDL Cholesterol Direct (0-129) mg/dL HDL Cholesterol (29-60) mg/dL Procalcitonin (0.19-0.49) NG/ML Venous Blood Potassium (3.6-5.2) mmol/L Urine Color (YELLOW) Urine Appearance (CLEAR) Urine pH (4.7-8.0) Ur Specific [place] (1.005-1.035) Urine Protein (<30 mg/dL) mg/dL Urine Glucose (UA) (NEGATIVE) mg/dL Urine Ketones (NEGATIVE) mg/dL Urine Blood (NEGATIVE) Urine Nitrate (NEGATIVE) Urine Bilirubin (NEGATIVE) Urine Urobilinogen (<1 E.U./dL) E.U./dL Ur Leukocyte Esterase (NEGATIVE) Enrico/uL Urine Opiates Screen Negative (NEGATIVE) Urine Methadone Screen Negative (NEGATIVE) Ur Barbiturates Screen Negative (NEGATIVE) Ur Phencyclidine Scrn Negative (NEGATIVE) Ur Amphetamines Screen Negative (NEGATIVE) U Benzodiazepines Scrn Negative (NEGATIVE) U Oth Cocaine Metabols Negative (NEGATIVE) U Cannabinoids Screen Negative (NEGATIVE) 07/12/17 07/12/17 07/12/17 Range/Units 21:30 20:21 20:05 WBC (4.5-11.0) 10^3/ul RBC (3.5-6.1) 10^6/uL Hgb (14.0-18.0) g/dL Hct (42.0-52.0) % MCV (80.0-105.0) fl MCH (25.0-35.0) pg MCHC (31.0-37.0) g/dl RDW (11.5-14.5) % Plt Count (120.0-450.0) 10^3/uL MPV (7.0-11.0) fl ESR (0.0-15.0) mm/hr pO2 116 H (30-55) mm/Hg VBG pH 7.46 H (7.32-7.43) VBG pCO2 36.0 L (40-60) VBG HCO3 25.6 (21-28) mmol/l VBG Total CO2 26.7 (22-28) mmol.L VBG O2 Sat (Calc) 99.5 H (40-65) % VBG Base Excess 2.0 (0.0-2.0) mmol/L VBG Potassium 3.9 (3.6-5.2) mmol/L Sodium 138.0 (132-148) mmol/L Chloride 106.0 (98-107) mmol/L Glucose 120 H (75-110) mg/dl Lactate 1.2 (0.7-2.1) mmol/L FiO2 21.0 % Potassium (3.6-5.0) mmol/L Carbon Dioxide (21-33) mmol/L Anion Gap (10-20) BUN (7-21) mg/dL Creatinine (0.8-1.5) mg/dl Est GFR ( Amer) Est GFR (Non-Af Amer) Random Glucose (70-110) mg/dL Calcium (8.4-10.5) mg/dL Phosphorus (2.5-4.5) mg/dL Magnesium (1.7-2.2) mg/dL Total Bilirubin (0.2-1.3) mg/dL AST (17-59) U/L ALT (7-56) U/L Alkaline Phosphatase (38-126) U/L Lactate Dehydrogenase (333-699) U/L Total Creatine Kinase (35-230) U/L CK-MB (CK-2) (0.0-3.6) ng/mL CK-MB (CK-2) % (2.5-3.0) % Troponin I ng/mL Total Protein (5.8-8.3) g/dL Albumin (3.0-4.8) g/dL Globulin gm/dL Albumin/Globulin Ratio (1.1-1.8) Triglycerides (35-160) mg/dL Cholesterol (130-200) mg/dL LDL Cholesterol Direct (0-129) mg/dL HDL Cholesterol (29-60) mg/dL Procalcitonin 0.18 L (0.19-0.49) NG/ML Venous Blood Potassium 3.9 (3.6-5.2) mmol/L Urine Color Yellow (YELLOW) Urine Appearance Clear (CLEAR) Urine pH 6.0 (4.7-8.0) Ur Specific [place] 1.010 (1.005-1.035) Urine Protein Negative (<30 mg/dL) mg/dL Urine Glucose (UA) Negative (NEGATIVE) mg/dL Urine Ketones Negative (NEGATIVE) mg/dL Urine Blood Negative (NEGATIVE) Urine Nitrate Negative (NEGATIVE) Urine Bilirubin Negative (NEGATIVE) Urine Urobilinogen 0.2 (<1 E.U./dL) E.U./dL Ur Leukocyte Esterase Negative (NEGATIVE) Enrico/uL Urine Opiates Screen (NEGATIVE) Urine Methadone Screen (NEGATIVE) Ur Barbiturates Screen (NEGATIVE) Ur Phencyclidine Scrn (NEGATIVE) Ur Amphetamines Screen (NEGATIVE) U Benzodiazepines Scrn (NEGATIVE) U Oth Cocaine Metabols (NEGATIVE) U Cannabinoids Screen (NEGATIVE) Laboratory Results - last 24 hr 07/12/17 07/12/17 07/12/17 20:05 20:21 21:30 WBC RBC Hgb Hct MCV MCH MCHC RDW Plt Count MPV ESR pO2 116 H VBG pH 7.46 H VBG pCO2 36.0 L VBG HCO3 25.6 VBG Total CO2 26.7 VBG O2 Sat (Calc) 99.5 H VBG Base Excess 2.0 VBG Potassium 3.9 Sodium 138.0 Chloride 106.0 Glucose 120 H Lactate 1.2 FiO2 21.0 Potassium Carbon Dioxide Anion Gap BUN Creatinine Est GFR ( Amer) Est GFR (Non-Af Amer) Random Glucose Calcium Phosphorus Magnesium Total Bilirubin AST ALT Alkaline Phosphatase Lactate Dehydrogenase Total Creatine Kinase CK-MB (CK-2) CK-MB (CK-2) % Troponin I Total Protein Albumin Globulin Albumin/Globulin Ratio Triglycerides Cholesterol LDL Cholesterol Direct HDL Cholesterol Procalcitonin 0.18 L Venous Blood Potassium 3.9 Urine Color Yellow Urine Appearance Clear Urine pH 6.0 Ur Specific [place] 1.010 Urine Protein Negative Urine Glucose (UA) Negative Urine Ketones Negative Urine Blood Negative Urine Nitrate Negative Urine Bilirubin Negative Urine Urobilinogen 0.2 Ur Leukocyte Esterase Negative Urine Opiates Screen Urine Methadone Screen Ur Barbiturates Screen Ur Phencyclidine Scrn Ur Amphetamines Screen U Benzodiazepines Scrn U Oth Cocaine Metabols U Cannabinoids Screen 07/12/17 07/12/17 07/13/17 21:30 23:55 05:50 WBC 10.2 D RBC 4.76 Hgb 14.6 Hct 42.5 MCV 89.3 MCH 30.7 MCHC 34.4 RDW 12.5 Plt Count 238 MPV 11.0 ESR pO2 VBG pH VBG pCO2 VBG HCO3 VBG Total CO2 VBG O2 Sat (Calc) VBG Base Excess VBG Potassium Sodium Chloride Glucose Lactate FiO2 Potassium Carbon Dioxide Anion Gap BUN Creatinine Est GFR ( Amer) Est GFR (Non-Af Amer) Random Glucose Calcium Phosphorus Magnesium Total Bilirubin AST ALT Alkaline Phosphatase Lactate Dehydrogenase 512 Total Creatine Kinase 234 H CK-MB (CK-2) 6.8 H CK-MB (CK-2) % 2.9 Troponin I 1.94 H* D Total Protein Albumin Globulin Albumin/Globulin Ratio Triglycerides Cholesterol LDL Cholesterol Direct HDL Cholesterol Procalcitonin Venous Blood Potassium Urine Color Urine Appearance Urine pH Ur Specific [place] Urine Protein Urine Glucose (UA) Urine Ketones Urine Blood Urine Nitrate Urine Bilirubin Urine Urobilinogen Ur Leukocyte Esterase Urine Opiates Screen Negative Urine Methadone Screen Negative Ur Barbiturates Screen Negative Ur Phencyclidine Scrn Negative Ur Amphetamines Screen Negative U Benzodiazepines Scrn Negative U Oth Cocaine Metabols Negative U Cannabinoids Screen Negative 07/13/17 07/13/17 07/13/17 05:50 07:25 12:20 WBC RBC Hgb Hct MCV MCH MCHC RDW Plt Count MPV ESR 30 H pO2 VBG pH VBG pCO2 VBG HCO3 VBG Total CO2 VBG O2 Sat (Calc) VBG Base Excess VBG Potassium Sodium 142 Chloride 105 Glucose Lactate FiO2 Potassium 4.0 Carbon Dioxide 25 Anion Gap 16 BUN 11 Creatinine 0.7 L Est GFR ( Amer) > 60 Est GFR (Non-Af Amer) > 60 Random Glucose 106 Calcium 9.6 Phosphorus 3.6 Magnesium 2.2 Total Bilirubin 0.4 AST 70 H D ALT 72 H Alkaline Phosphatase 89 Lactate Dehydrogenase 590 Total Creatine Kinase 356 H CK-MB (CK-2) 20.6 H CK-MB (CK-2) % 5.8 H Troponin I 4.76 H* D Total Protein 7.7 Albumin 4.1 Globulin 3.5 Albumin/Globulin Ratio 1.2 Triglycerides 155 Cholesterol 208 H LDL Cholesterol Direct 133 H HDL Cholesterol 34 Procalcitonin Venous Blood Potassium Urine Color Urine Appearance Urine pH Ur Specific [place] Urine Protein Urine Glucose (UA) Urine Ketones Urine Blood Urine Nitrate Urine Bilirubin Urine Urobilinogen Ur Leukocyte Esterase Urine Opiates Screen Urine Methadone Screen Ur Barbiturates Screen Ur Phencyclidine Scrn Ur Amphetamines Screen U Benzodiazepines Scrn U Oth Cocaine Metabols U Cannabinoids Screen Critical Care Progress Note - Nutrition Nutrition: Nutrition Category Date Time Status Regular Diet [DIET] Diets 07/13/17 Lunch Ordered Attending/Attestation - Attestation I have personally seen and examined this patient.: Yes I have fully participated in the care of the patient.: Yes I have reviewed all pertinent clinical information: Yes Notes (Text): 07/13/17 16:[address] Coe's note
[2017-07-13] MEDS ORDERED: Metoprolol 1 mg/ml Inj IVP ONE (12:13)
--- NOTE | 2017-07-13 12:44 | CARD ---
APPROVED REPORT EXAM: Two-dimensional and M-mode echocardiogram with Doppler and color Doppler. INDICATION Pericarditis 2D DIMENSIONS Left Atrium (2D)4.1 (1.6-4.0cm)IVSd1.1 (0.7-1.1cm) LVDd4.3 (3.9-5.9cm)PWd1.1 (0.7-1.1cm) LVDs2.6 (2.5-4.0cm)FS (%) 39.3 % LVEF (%)70.1 (>50%) M-Mode DIMENSIONS Aortic Root2.80 (2.2-3.7cm)Aortic Cusp Exc.1.80 (1.5-2.0cm) Aortic Valve AoV Peak Sjnlxlmo905.0cm/Mckenzie Peak GR.12mmHg Mitral Valve E/A ratio0.0 TDI E/Lateral E'0.0E/Medial E'0.0 Tricuspid Valve TR Peak [id number] [id number] Peak Gr.25mmHg [id number] LEFT VENTRICLE The left ventricular function is normal. The left ventricular ejection fraction is within the normal range. RIGHT VENTRICLE The right ventricle is normal size. ATRIA The left atrium size is normal. The right atrium size is normal. AORTIC VALVE The aortic valve is thickened but opens well. There is trace to mild aortic regurgitation. MITRAL VALVE The mitral valve is thickened but opens well. TRICUSPID VALVE The tricuspid valve leaflets are thickened , but open well. There is mild tricuspid regurgitation. There is no pulmonary hypertension. PULMONIC VALVE The pulmonary valve is normal in structure. PERICARDIAL EFFUSION There is no pericardial effusion. <Conclusion> Normal LV function No pericardial effusion Mild TR and AI No pulmonary hypertension
--- NOTE | 2017-07-13 14:39 | CARDCATH ---
PROCEDURE DATE: 07/13/2017 HISTORY: The patient is a 42-year-old male who presents with pleuritic like chest pain. His EKG was consistent with pericarditis. However, his echocardiogram reveals no pericardial effusion. In addition, his troponins continued to elevate. Because of this, a cardiac catheterization was recommended. PROCEDURE : Left heart catheterization with coronary arteriography, left ventriculogram, aortic root injection were performed. There were no complications. The right femoral artery was cannulated with 6-Moldovan sheath. There were no complications. I performed moderate sedation, which included the presence of an independent trained observer that assisted in monitoring the patient's level of consciousness and physiologic status. After administration of Versed and fentanyl, my intra-service time was 15 minutes. The findings on catheterization revealed a left ventricle that contracted normally. Estimated ejection fraction of 60%. Supra-aortic valvular injection revealed no aortic insufficiency. His coronary anatomy revealed a right dominant circulation. The RCA was unremarkable. The left main artery was unremarkable. The LAD and diagonal vessels were free of significant disease. The circumflex artery and obtuse marginal branches were free of significant disease. Angio-Seal was used to close the femoral artery site. The patient tolerated the procedure well. In summary, the procedure revealed no wall motion abnormalities, no aortic insufficiency and unremarkable coronary arteries. Given these findings, his diagnosis and elevated troponins is consistent with pericarditis with a myocarditis involvement. There is no significant coronary artery disease. Given these findings, we will treat the patient on nonsteroidal anti-inflammatories. Ilan Dawn MD
--- NOTE | 2017-07-13 15:03 | CP.PCM.PN ---
<Ottoniel López - Last Filed: 07/13/17 15:19> Subjective - Date & Time of Evaluation Date of Evaluation: 07/13/17 Time of Evaluation: 14:58 - Subjective Subjective: Patient was seen and examined this AM. Patient reports continued chest discomfort with flexion of his pectoral muscles. He endorses some discomfort with breathing at times. He denies abdominal pain, diarrhea, constipation, vomiting. Patient to go for [facility] today for further evaluation. Objective - Vital Signs/Intake and Output Vital Signs (last 24 hours): Temp Pulse Resp BP Pulse Ox 98.2 F 85 20 118/68 99 07/13/17 14:00 07/13/17 14:30 07/13/17 14:30 07/13/17 14:30 07/13/17 14:30 Intake and Output: 07/13/17 07/13/17 06:59 18:59 Intake Total 2000 Output Total 200 Balance 1800 - Medications Medications: Current Medications Acetaminophen (Tylenol 325mg Tab) 650 mg PO Q6H PRN PRN Reason: Fever >100.4 F Alprazolam (Xanax) 0.5 mg PO TID PRN; Protocol PRN Reason: Anxiety Last Admin: 07/12/17 23:47 Dose: 0.5 mg Atorvastatin Calcium (Lipitor) 20 mg PO DIN [facility] Sodium Chloride (Sodium Chloride 0.9%) 1,000 mls @ 100 mls/hr IV .Q10H [facility] Stop: 07/13/17 18:00 Last Admin: 07/13/17 08:35 Dose: 100 mls/hr Doxycycline Hyclate 100 mg/ (Sodium Chloride) 100 mls @ 100 mls/hr IVPB Q12 [facility] PRN Reason: Protocol Last Admin: 07/13/17 10:17 Dose: 100 mls/hr Ceftriaxone Sodium (Rocephin 1 Gram Ivpb) 1 gm in 100 mls @ 100 mls/hr IVPB DAILY [facility] PRN Reason: Protocol Last Admin: 07/13/17 09:18 Dose: 100 mls/hr Indomethacin (Indocin) 50 mg PO TID [facility] Lamotrigine (Lamictal) 150 mg PO BID [facility] Last Admin: 07/13/17 09:18 Dose: 150 mg Metoprolol Tartrate (Lopressor) 25 mg PO BID [facility] Oseltamivir Phosphate (Tamiflu Cap) 75 mg PO BID [facility] PRN Reason: Protocol Last Admin: 07/13/17 09:18 Dose: 75 mg Pantoprazole Sodium (Protonix Inj) 40 mg IVP DAILY [facility] Last Admin: 07/13/17 09:18 Dose: 40 mg - Labs Labs: 07/13/17 05:50 07/13/17 05:50 PT 13.5 SECONDS (9.4-12.5) H 07/12/17 17:10 INR 1.18 (0.93-1.08) H 07/12/17 17:10 APTT 28.8 Seconds (25.1-36.5) 07/12/17 17:10 - Constitutional Appears: Non-toxic, No Acute Distress - Head Exam Head Exam: ATRAUMATIC, NORMAL INSPECTION, NORMOCEPHALIC - Eye Exam Eye Exam: EOMI, PERRL - ENT Exam ENT Exam: Mucous Membranes Moist - Respiratory Exam Respiratory Exam: Clear to Ausculation Bilateral, NORMAL BREATHING PATTERN. absent: Rhonchi, Wheezes - Cardiovascular Exam Cardiovascular Exam: REGULAR RHYTHM, +S1, +S2 - GI/Abdominal Exam GI & Abdominal Exam: Soft, Normal Bowel Sounds. absent: Tenderness - Extremities Exam Extremities Exam: Full ROM, Normal Inspection. absent: Pedal Edema - Back Exam Back Exam: absent: CVA tenderness (L), CVA tenderness (R) - Neurological Exam Neurological Exam: Alert, Awake, CN II-XII Intact, Normal Gait, Oriented x3 - Psychiatric Exam Psychiatric exam: Normal Affect, Normal Mood - Skin Skin Exam: Dry, Intact, Warm Assessment and Plan - Assessment and Plan (Free Text) Assessment: 42 year old male with past medical history of anxiety and seizure disorder who presented to [facility] [place] ED complaining of chest discomfort with EKG showing diffuse ST elevations and LHC showing unremarkable coronary arteries, no wall motion abnormalities and preserved EF via echocardiogram. Patient is currently being monitored in ICU. Plan: Chest pain r/o ACS Details: - Etiology: pleurisy from PNA vs. PE vs. PA vs. Pericarditis vs. Myocarditis - Patient reporting chest discomfort for past 3 days - EKG showing diffuse ST elevations - Troponin elevation trending upward - ESR elevated - elevated D-dimer - Procal low - CT Chest showing no evidence for acute pulomary embolism, PNA Plan: - Cardiology consulted, appreciate recs - Patient to go for LHC today - LHC showing unremarkable coronary arteries, no wall motion abnormalities, no aortic insufficiency - Place patient on ASA, Statin, BB - Echocardiogram - showing normal EF, no evidence of cardiac effusion Myocarditis in setting of pericarditis Details: - EKG showing diffuse ST elevations - Elevated ESR - D-dimer elevated - Echocardiogram - normal EF, no pericardial effusion - LHC - unremarkable coronary arteries, no wall motion abnormalities, no aortic insufficiency Plan: - ID consulted, follow up recs - follow up myocarditis lab work up - HIV, EBV, CMV, HSV 1/2, Syphillis, Parvovirus, ASO, coxsackie - Looking into further testing for patient - NSAIDS - indomethacin Hx of anxiety - Continue home meds Hx of Seizures - Continue home meds - Continue to monitor - Seizure precautions GI/DVT ppx - Pepcid - SCD Case and plan discussed with attending Chris López PGY-1 <All Sewell - Last Filed: 07/13/17 15:58> Objective - Vital Signs/Intake and Output Vital Signs (last 24 hours): Temp Pulse Resp BP Pulse Ox 98.2 F 85 20 118/68 99 07/13/17 14:00 07/13/17 14:30 07/13/17 14:30 07/13/17 14:30 07/13/17 14:30 Intake and Output: 07/13/17 07/13/17 06:59 18:59 Intake Total 2000 Output Total 200 Balance 1800 - Medications Medications: Current Medications Acetaminophen (Tylenol 325mg Tab) 650 mg PO Q6H PRN PRN Reason: Fever >100.4 F Alprazolam (Xanax) 0.5 mg PO TID PRN; Protocol PRN Reason: Anxiety Last Admin: 07/12/17 23:47 Dose: 0.5 mg Atorvastatin Calcium (Lipitor) 20 mg PO DIN [facility] Sodium Chloride (Sodium Chloride 0.9%) 1,000 mls @ 100 mls/hr IV .Q10H [facility] Stop: 07/13/17 18:00 Last Admin: 07/13/17 08:35 Dose: 100 mls/hr Doxycycline Hyclate 100 mg/ (Sodium Chloride) 100 mls @ 100 mls/hr IVPB Q12 [facility] PRN Reason: Protocol Last Admin: 07/13/17 10:17 Dose: 100 mls/hr Ceftriaxone Sodium (Rocephin 1 Gram Ivpb) 1 gm in 100 mls @ 100 mls/hr IVPB DAILY [facility] PRN Reason: Protocol Last Admin: 07/13/17 09:18 Dose: 100 mls/hr Indomethacin (Indocin) 50 mg PO TID [facility] Last Admin: 07/13/17 15:07 Dose: 50 mg Lamotrigine (Lamictal) 150 mg PO BID [facility] Last Admin: 07/13/17 09:18 Dose: 150 mg Metoprolol Tartrate (Lopressor) 25 mg PO BID [facility] Oseltamivir Phosphate (Tamiflu Cap) 75 mg PO BID [facility] PRN Reason: Protocol Last Admin: 07/13/17 09:18 Dose: 75 mg Pantoprazole Sodium (Protonix Inj) 40 mg IVP DAILY [facility] Last Admin: 07/13/17 09:18 Dose: 40 mg - Labs Labs: 07/13/17 05:50 07/13/17 05:50 PT 13.5 SECONDS (9.4-12.5) H 07/12/17 17:10 INR 1.18 (0.93-1.08) H 07/12/17 17:10 APTT 28.8 Seconds (25.1-36.5) 07/12/17 17:10 Attending/Attestation - Attestation I have personally seen and examined this patient.: Yes I have fully participated in the care of the patient.: Yes I have reviewed all pertinent clinical information, including history, physical exam and plan: Yes Notes (Text): 07/13/17 15:52 42 year old male with past medical history o seizure disorder and anxiety who presented with complaint of fever and chest pain. EKG showed diffuse ST elevations and he had elevated cardiac enzymes. He was started on aspirin, statin, anticoagulation and BB. He was seen by cardiology and underwent cardiac cath today which showed unremarkable coronary arteries. Patient is on NSAIDs for suspected pericarditis +/- myocarditis. He was also seen by ID and is currently on doxycyline and ceftriaxone while awaiting cultures. D-dimer was elevated however CT angio was negative for PE. Leukocytosis has improved. LFTs are mildly elevated which we will monitor. All Sewell MD Hospitalist.
[2017-07-13 16:58] LABS: HEPATITIS B SURFACE AG Negative (NEGATIVE)
[2017-07-13 17:05] LABS: HEPATITIS A IGM NEGATIVE (NEGATIVE); HEPATITIS B CORE AB NEGATIVE (NEGATIVE)
[2017-07-13 17:16] LABS: HEPATITIS C ANTIBODY NEGATIVE (NEGATIVE)
[2017-07-13 20:59] LABS: FREE T4 0.79 ng/dL (0.78-2.19)
[2017-07-14 06:27] VITALS: TEMP 97.7
[2017-07-14 06:53] LABS: HEMOGLOBIN 13.2 g/dL (14.0-18.0); MEAN CELL VOLUME 89.9 fl (80.0-105.0); MEAN CORPUSCULAR HEMOGLOBIN 30.3 pg (25.0-35.0); MEAN CORPUSCULAR HGB CONC 33.7 g/dl (31.0-37.0); MEAN PLATELET VOLUME 10.4 fl (7.0-11.0); RBC 4.36 10^6/uL (3.5-6.1); RED CELL DISTRIBUTION WIDTH 12.5 % (11.5-14.5); WHITE BLOOD COUNT 6.9 10^3/ul (4.5-11.0)
[2017-07-14 07:21] LABS: ALB/GLOB RATIO 1.1 (1.1-1.8); ALBUMIN 3.5 g/dL (3.0-4.8); ALT/SGPT 77 U/L (7-56); AST/SGOT 50 U/L (17-59); BLOOD UREA NITROGEN 11 mg/dL (7-21); CALCIUM 9.1 mg/dL (8.4-10.5); GFR AFRICAN-AMERICAN > 60; GFR NON-AFRICAN AMERICAN > 60
--- NOTE | 2017-07-14 11:17 | CP.PCM.PN ---
Subjective - Date & Time of Evaluation Date of Evaluation: 07/14/17 Time of Evaluation: 08:50 - Subjective Subjective: Comfortable, no fevers, improved chest pain, not short of breath at rest, no nausea, no diarrhea. Objective - Vital Signs/Intake and Output Vital Signs (last 24 hours): Temp Pulse Resp BP Pulse Ox 97.2 F L 75 23 115/70 97 07/14/17 01:47 07/14/17 06:00 07/14/17 05:50 07/14/17 06:00 07/14/17 06:00 Intake and Output: 07/13/17 07/14/17 18:59 06:59 Intake Total 1630 1350 Output Total 920 600 Balance 710 750 - Medications Medications: Current Medications Acetaminophen (Tylenol 325mg Tab) 650 mg PO Q6H PRN PRN Reason: Fever >100.4 F Alprazolam (Xanax) 0.5 mg PO TID PRN; Protocol PRN Reason: Anxiety Last Admin: 07/13/17 21:38 Dose: 0.5 mg Atorvastatin Calcium (Lipitor) 20 mg PO DIN [facility] Last Admin: 07/13/17 17:11 Dose: 20 mg Indomethacin (Indocin) 50 mg PO TID [facility] Last Admin: 07/13/17 19:02 Dose: 50 mg Lamotrigine (Lamictal) 150 mg PO BID [facility] Last Admin: 07/13/17 17:11 Dose: 150 mg Metoprolol Tartrate (Lopressor) 25 mg PO BID [facility] Last Admin: 07/13/17 17:12 Dose: 25 mg Oseltamivir Phosphate (Tamiflu Cap) 75 mg PO BID [facility] PRN Reason: Protocol Last Admin: 07/13/17 17:11 Dose: 75 mg Pantoprazole Sodium (Protonix Inj) 40 mg IVP DAILY [facility] Last Admin: 07/13/17 09:18 Dose: 40 mg - Labs Labs: 07/13/17 05:50 07/13/17 05:50 PT 13.5 SECONDS (9.4-12.5) H 07/12/17 17:10 INR 1.18 (0.93-1.08) H 07/12/17 17:10 APTT 28.8 Seconds (25.1-36.5) 07/12/17 17:10 - Constitutional Appears: Non-toxic - Head Exam Head Exam: NORMAL INSPECTION - ENT Exam ENT Exam: Mucous Membranes Moist - Neck Exam Neck Exam: absent: Lymphadenopathy, Meningismus - Respiratory Exam Respiratory Exam: absent: Rales, Rhonchi - Cardiovascular Exam Cardiovascular Exam: +S1, +S2 - GI/Abdominal Exam GI & Abdominal Exam: Soft. absent: Tenderness - Extremities Exam Additional comments: no rash on extremities, hands, palms, feet or soles noted Assessment and Plan - Assessment and Plan (Free Text) Plan: Assessment Systemic inflammatory response syndrome, consider sepsis from myopericarditis ( probably viral less likely bacterial) seizure disorder anxiety disorder obesity with BMI 36 S/P tonsillectomy S/P ligament surgery on right ankle Plan continue Tamiflu since it is still Influenza season, day 2 to complete a 5 day course; patient has been started on Rocephin and Doxycycline although risk of bacterial exposure causing myocarditis is less, blood cx are negative, no travel -related exposure; also lyme carditis would have AV block which the patient does not have; reviewed CT chest as well which does not show mediastinal lymphadenopathy (making rodent-related diseases such as tularemia much less likely) and no pneumonia, patient has not been outdoors making Lyme disease much less likely as well, and also Erlichia - will d/c antibiotics and observe Follow up Coxsackie work up, EBV and CMV studies follow up HIV test continue NSAIDs will continue to monitor clinically
--- NOTE | 2017-07-14 11:25 | CP.PCM.PN ---
<Ottoniel López - Last Filed: 07/14/17 11:21> Subjective - Date & Time of Evaluation Date of Evaluation: 07/14/17 Time of Evaluation: 07:00 - Subjective Subjective: Patient seen and examined this AM. No acute events overnight. Patient indicates his chest pain is mildly improved from admission. Continues to report some discomfort, catching sensation when breathing in deep. Patient reports headache at the time of interview. Denies abdominal pain, pleuritic pain, diarrhea, constipation, vomiting, fever, chills. Objective - Vital Signs/Intake and Output Vital Signs (last 24 hours): Temp Pulse Resp BP Pulse Ox 97.7 F 90 23 117/73 97 07/14/17 06:27 07/14/17 09:55 07/14/17 05:50 07/14/17 09:55 07/14/17 06:00 Intake and Output: 07/14/17 07/14/17 06:59 18:59 Intake Total 1350 Output Total 600 Balance 750 - Medications Medications: Current Medications Acetaminophen (Tylenol 325mg Tab) 650 mg PO Q6H PRN PRN Reason: Fever >100.4 F Alprazolam (Xanax) 0.5 mg PO TID PRN; Protocol PRN Reason: Anxiety Last Admin: 07/13/17 21:38 Dose: 0.5 mg Atorvastatin Calcium (Lipitor) 20 mg PO DIN [facility] Last Admin: 07/13/17 17:11 Dose: 20 mg Indomethacin (Indocin) 50 mg PO TID [facility] Last Admin: 07/14/17 09:53 Dose: 50 mg Lamotrigine (Lamictal) 150 mg PO BID [facility] Last Admin: 07/14/17 09:53 Dose: 150 mg Metoprolol Tartrate (Lopressor) 25 mg PO BID [facility] Last Admin: 07/14/17 09:55 Dose: 25 mg Oseltamivir Phosphate (Tamiflu Cap) 75 mg PO BID [facility] PRN Reason: Protocol Last Admin: 07/14/17 09:53 Dose: 75 mg Pantoprazole Sodium (Protonix Inj) 40 mg IVP DAILY [facility] Last Admin: 07/14/17 09:56 Dose: 40 mg - Labs Labs: 07/14/17 05:00 07/14/17 05:00 PT 13.5 SECONDS (9.4-12.5) H 07/12/17 17:10 INR 1.18 (0.93-1.08) H 07/12/17 17:10 APTT 28.8 Seconds (25.1-36.5) 07/12/17 17:10 - Constitutional Appears: Non-toxic, No Acute Distress - Head Exam Head Exam: ATRAUMATIC, NORMAL INSPECTION, NORMOCEPHALIC - Eye Exam Eye Exam: EOMI, PERRL - ENT Exam ENT Exam: Mucous Membranes Moist - Respiratory Exam Respiratory Exam: Clear to Ausculation Bilateral, NORMAL BREATHING PATTERN. absent: Rales, Rhonchi, Wheezes - Cardiovascular Exam Cardiovascular Exam: REGULAR RHYTHM, +S1, +S2 - GI/Abdominal Exam GI & Abdominal Exam: Soft, Normal Bowel Sounds. absent: Tenderness - Extremities Exam Extremities Exam: Normal Inspection. absent: Calf Tenderness, Pedal Edema - Neurological Exam Neurological Exam: Alert, Awake, Normal Gait, Oriented x3 Neuro motor strength exam: Left Upper Extremity: 5, Right Upper Extremity: 5, Left Lower Extremity: 5, Right Lower Extremity: 5 - Psychiatric Exam Psychiatric exam: Normal Affect, Normal Mood - Skin Skin Exam: Dry, Normal Color, Warm Assessment and Plan - Assessment and Plan (Free Text) Assessment: 42 year old male with past medical history of anxiety and seizure disorder who presented to [facility] [place] ED complaining of chest discomfort with EKG showing diffuse ST elevations and LHC showing unremarkable coronary arteries, no wall motion abnormalities and preserved EF via echocardiogram. Patient is currently being monitored in ICU. Plan: Chest pain r/o ACS Details: - Etiology: pleurisy from PNA vs. PE vs. VT vs. Pericarditis vs. Myocarditis - EKG showing diffuse ST elevations - Troponin elevations on admission - ESR elevated - elevated D-dimer - Procal low - CT Chest showing no evidence for acute pulmonary embolism, PNA Plan: - Cardiology consulted, appreciate recs - Patient to go for C today - LHC showing unremarkable coronary arteries, no wall motion abnormalities, no aortic insufficiency - Echocardiogram - showing normal EF, no evidence of cardiac effusion Myocarditis in setting of pericarditis Details: - EKG showing diffuse ST elevations - Elevated ESR - D-dimer elevated - Echocardiogram - normal EF, no pericardial effusion - LHC - unremarkable coronary arteries, no wall motion abnormalities, no aortic insufficiency Plan: - ID consulted, follow up recs - follow up myocarditis lab work up - HIV, EBV, CMV, HSV 1/2, Syphillis, Parvovirus, ASO, coxsackie - Hantavirus labs to be sent to [facility] - NSAIDS - indomethacin - Curbside with cardio indicating continued therapy inpatient with indomethacin and further monitoring of clinical picture Hx of anxiety - Continue home meds Hx of Seizures - Continue home meds - Continue to monitor - Seizure precautions GI/DVT ppx - Pepcid - SCD Case and plan discussed with attending Chris López PGY-1 <All Sewell - Last Filed: 07/14/17 12:35> Objective - Vital Signs/Intake and Output Vital Signs (last 24 hours): Temp Pulse Resp BP Pulse Ox 97.7 F 90 23 117/73 97 07/14/17 06:27 07/14/17 09:55 07/14/17 05:50 07/14/17 09:55 07/14/17 06:00 Intake and Output: 07/14/17 07/14/17 06:59 18:59 Intake Total 1350 Output Total 600 Balance 750 - Medications Medications: Current Medications Acetaminophen (Tylenol 325mg Tab) 650 mg PO Q6H PRN PRN Reason: Fever >100.4 F Alprazolam (Xanax) 0.5 mg PO TID PRN; Protocol PRN Reason: Anxiety Last Admin: 07/13/17 21:38 Dose: 0.5 mg Atorvastatin Calcium (Lipitor) 20 mg PO DIN [facility] Last Admin: 07/13/17 17:11 Dose: 20 mg Indomethacin (Indocin) 50 mg PO TID [facility] Last Admin: 07/14/17 09:53 Dose: 50 mg Lamotrigine (Lamictal) 150 mg PO BID [facility] Last Admin: 07/14/17 09:53 Dose: 150 mg Metoprolol Tartrate (Lopressor) 25 mg PO BID [facility] Last Admin: 07/14/17 09:55 Dose: 25 mg Oseltamivir Phosphate (Tamiflu Cap) 75 mg PO BID [facility] PRN Reason: Protocol Last Admin: 07/14/17 09:53 Dose: 75 mg Pantoprazole Sodium (Protonix Ec Tab) 40 mg PO ACB [facility] - Labs Labs: 07/14/17 05:00 07/14/17 05:00 PT 13.5 SECONDS (9.4-12.5) H 07/12/17 17:10 INR 1.18 (0.93-1.08) H 07/12/17 17:10 APTT 28.8 Seconds (25.1-36.5) 07/12/17 17:10 Attending/Attestation - Attestation I have personally seen and examined this patient.: Yes I have fully participated in the care of the patient.: Yes I have reviewed all pertinent clinical information, including history, physical exam and plan: Yes Notes (Text): 07/14/17 12:33 42 year old male with past medical history o seizure disorder and anxiety who presented with complaint of fever and chest pain. EKG showed diffuse ST elevations and he had elevated cardiac enzymes. He was seen by cardiology and underwent cardiac cath yesterday which showed unremarkable coronary arteries. Patient is on indomethacin for suspected pericarditis +/- myocarditis which improvement of symptoms. ID is following and has discontinued his antibiotics. Will monitor off antibiotics and follow up on cultures. Leukocytosis and mild transaminitis has improved. All Sewell MD Hospitalist.
--- NOTE | 2017-07-14 14:11 | CP.PCM.DIS ---
<Ottoniel López - Last Filed: 07/14/17 14:38> Provider - Provider Date of Admission: 07/12/17 18:56 Attending physician: All Sewell MD Primary care physician: Felicita Miranda DO Consults: ID: Dr. Dariusz Sullivan Cardiology: Dr. Ilan Dawn Time Spent in preparation of Discharge (in minutes): 45 Diagnosis - Discharge Diagnosis (1) Myocarditis Status: Acute (2) Pericarditis Status: Acute Hospital Course - Lab Results Lab Results: Micro Results 07/12/17 22:40 Naris MRSA Culture (Admit) - Final MRSA NOT DETECTED 07/12/17 22:32 Urine Urine Culture - Final No Growth (<1,000 CFU/ML) Most Recent Lab Values WBC 6.9 10^3/ul (4.5-11.0) D 07/14/17 05:00 RBC 4.36 10^6/uL (3.5-6.1) 07/14/17 05:00 Hgb 13.2 g/dL (14.0-18.0) L 07/14/17 05:00 Hct 39.2 % (42.0-52.0) L 07/14/17 05:00 MCV 89.9 fl (80.0-105.0) 07/14/17 05:00 MCH 30.3 pg (25.0-35.0) 07/14/17 05:00 MCHC 33.7 g/dl (31.0-37.0) 07/14/17 05:00 RDW 12.5 % (11.5-14.5) 07/14/17 05:00 Plt Count 221 10^3/uL (120.0-450.0) 07/14/17 05:00 MPV 10.4 fl (7.0-11.0) 07/14/17 05:00 Gran % 52.9 % (50.0-68.0) 07/12/17 17:10 Lymph % (Auto) 28.2 % (22.0-35.0) 07/12/17 17:10 Smith % (Auto) 18.0 % (1.0-6.0) H 07/12/17 17:10 Eos % (Auto) 0.6 % (1.5-5.0) L 07/12/17 17:10 Baso % (Auto) 0.3 % (0.0-3.0) 07/12/17 17:10 Gran # 7.42 (1.4-6.5) H 07/12/17 17:10 Lymph # (Auto) 4.0 (1.2-3.4) H 07/12/17 17:10 Smith # (Auto) 2.5 (0.1-0.6) H 07/12/17 17:10 Eos # (Auto) 0.1 (0.0-0.7) 07/12/17 17:10 Baso # (Auto) 0.04 K/mm3 (0.0-2.0) 07/12/17 17:10 ESR 30 mm/hr (0.0-15.0) H 07/13/17 12:20 PT 13.5 SECONDS (9.4-12.5) H 07/12/17 17:10 INR 1.18 (0.93-1.08) H 07/12/17 17:10 APTT 28.8 Seconds (25.1-36.5) 07/12/17 17:10 D-Dimer, Quantitative 375 ng/mL (0-243) H 07/12/17 17:10 pO2 116 mm/Hg (30-55) H 07/12/17 20:21 VBG pH 7.46 (7.32-7.43) H 07/12/17 20:21 VBG pCO2 36.0 (40-60) L 07/12/17 20:21 VBG HCO3 25.6 mmol/l (21-28) 07/12/17 20:21 VBG Total CO2 26.7 mmol.L (22-28) 07/12/17 20:21 VBG O2 Sat (Calc) 99.5 % (40-65) H 07/12/17 20:21 VBG Base Excess 2.0 mmol/L (0.0-2.0) 07/12/17 20:21 VBG Potassium 3.9 mmol/L (3.6-5.2) 07/12/17 20:21 Sodium 138.0 mmol/L (132-148) 07/12/17 20:21 Chloride 106.0 mmol/L (98-107) 07/12/17 20:21 Glucose 120 mg/dl (75-110) H 07/12/17 20:21 Lactate 1.2 mmol/L (0.7-2.1) 07/12/17 20:21 FiO2 21.0 % 07/12/17 20:21 Sodium 144 mmol/L (132-148) 07/14/17 05:00 Potassium 4.0 mmol/L (3.6-5.0) 07/14/17 05:00 Chloride 109 mmol/L (98-107) H 07/14/17 05:00 Carbon Dioxide 25 mmol/L (21-33) 07/14/17 05:00 Anion Gap 13 (10-20) 07/14/17 05:00 BUN 11 mg/dL (7-21) 07/14/17 05:00 Creatinine 0.7 mg/dl (0.8-1.5) L 07/14/17 05:00 Est GFR ( Amer) > 60 07/14/17 05:00 Est GFR (Non-Af Amer) > 60 07/14/17 05:00 Random Glucose 110 mg/dL (70-110) 07/14/17 05:00 Calcium 9.1 mg/dL (8.4-10.5) 07/14/17 05:00 Phosphorus 3.2 mg/dL (2.5-4.5) 07/14/17 05:00 Magnesium 2.0 mg/dL (1.7-2.2) 07/14/17 05:00 Total Bilirubin 0.3 mg/dL (0.2-1.3) 07/14/17 05:00 AST 50 U/L (17-59) 07/14/17 05:00 ALT 77 U/L (7-56) H 07/14/17 05:00 Alkaline Phosphatase 66 U/L (38-126) 07/14/17 05:00 Lactate Dehydrogenase 590 U/L (333-699) 07/13/17 05:50 Total Creatine Kinase 356 U/L (35-230) H 07/13/17 05:50 CK-MB (CK-2) 20.6 ng/mL (0.0-3.6) H 07/13/17 05:50 CK-MB (CK-2) % 5.8 % (2.5-3.0) H 07/13/17 05:50 Troponin I 4.76 ng/mL H* D 07/13/17 05:50 NT-Pro-B Natriuret Pep 683 pg/mL (0-450) H 07/12/17 17:10 Total Protein 6.7 g/dL (5.8-8.3) 07/14/17 05:00 Albumin 3.5 g/dL (3.0-4.8) 07/14/17 05:00 Globulin 3.1 gm/dL 07/14/17 05:00 Albumin/Globulin Ratio 1.1 (1.1-1.8) 07/14/17 05:00 Triglycerides 155 mg/dL (35-160) 07/13/17 07:25 Cholesterol 208 mg/dL (130-200) H 07/13/17 07:25 LDL Cholesterol Direct 133 mg/dL (0-129) H 07/13/17 07:25 HDL Cholesterol 34 mg/dL (29-60) 07/13/17 07:25 Lipase 71 U/L (23-300) 07/12/17 17:10 Procalcitonin 0.18 NG/ML (0.19-0.49) L 07/12/17 20:05 Free T4 0.79 ng/dL (0.78-2.19) 07/13/17 20:20 TSH 3rd Generation 5.17 mIU/mL (0.46-4.68) H 07/13/17 20:20 Venous Blood Potassium 3.9 mmol/L (3.6-5.2) 07/12/17 20:21 Urine Color Yellow (YELLOW) 07/12/17 21:30 Urine Appearance Clear (CLEAR) 07/12/17 21:30 Urine pH 6.0 (4.7-8.0) 07/12/17 21:30 Ur Specific Concho 1.010 (1.005-1.035) 07/12/17 21:30 Urine Protein Negative mg/dL (<30 mg/dL) 07/12/17 21:30 Urine Glucose (UA) Negative mg/dL (NEGATIVE) 07/12/17 21:30 Urine Ketones Negative mg/dL (NEGATIVE) 07/12/17 21:30 Urine Blood Negative (NEGATIVE) 07/12/17 21:30 Urine Nitrate Negative (NEGATIVE) 07/12/17 21:30 Urine Bilirubin Negative (NEGATIVE) 07/12/17 21:30 Urine Urobilinogen 0.2 E.U./dL (<1 E.U./dL) 07/12/17 21:30 Ur Leukocyte Esterase Negative Enrico/uL (NEGATIVE) 07/12/17 21:30 Urine Opiates Screen Negative (NEGATIVE) 07/12/17 21:30 Urine Methadone Screen Negative (NEGATIVE) 07/12/17 21:30 Ur Barbiturates Screen Negative (NEGATIVE) 07/12/17 21:30 Ur Phencyclidine Scrn Negative (NEGATIVE) 07/12/17 21:30 Ur Amphetamines Screen Negative (NEGATIVE) 07/12/17 21:30 U Benzodiazepines Scrn Negative (NEGATIVE) 07/12/17 21:30 U Oth Cocaine Metabols Negative (NEGATIVE) 07/12/17 21:30 U Cannabinoids Screen Negative (NEGATIVE) 07/12/17 21:30 EBV Capsid Ag IgG Ab 219.00 U/mL H 07/13/17 10:30 EBV Capsid Ag IgM Ab <36.00 U/mL 07/13/17 10:30 Hepatitis A IgM Ab Negative (NEGATIVE) 07/13/17 12:00 Hep Bs Antigen Negative (NEGATIVE) 07/13/17 12:00 Hep B Core IgM Ab Negative (NEGATIVE) 07/13/17 12:00 Hepatitis C Antibody Negative (NEGATIVE) 07/13/17 12:00 HIV 1&2 Ag/Ab, 4th Gen Nonreactive (Nonreactive) 07/13/17 05:50 Influenza Typ A,B (EIA) Negative for flu a/b (NEGATIVE) 07/12/17 17:10 - Hospital Course Hospital Course: Patient is a 42 year old male with past medical history of anxiety and seizures who presented to [facility] ED from local urgent care after having and EKG showing diffuse ST elevations. Patient reportedly had 3 days of fever and chills prior to arrival. Patient had reported 3 day history of chest pain and episodes of pleuritic chest discomfort. 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 He indicated exposure over a period of a few weeks. Patient was admitted and treated for possible ACS vs. Myocarditis vs. Pericarditis. Patient EKG on admission showed diffuse ST elevations, elevated troponins, febrile with leukocytosis. Patient was admitted to ICU for closer monitoring. Cardiology was consulted and patient received echocardiogram showing normal EF, no wall motion abnormalities. A left heart catheritization was preformed showing unremarkable coronary arteries and no wall motion abnormalities. Patient was proposed to have myocarditis in the setting of pericardiits, placed on indomethacin and monitored for clinical changes. Infectious disease was consulted and evaluated the patient. He was placed on doxycycline and rocephin. Labs and titers were drawn for discovery of etiology of myocarditis etiology. Antibiotics were stopped soon after beginning but patient was conitnued on tamiflu due to ID concern and timing of flu season. Patient continued to show clinical improvement in regards to his chest pain and pleuritic breathing discomfort. Patient was deemed acceptable for discharge to home with prescriptions for indocin for potential myocardiits. Patient was instructed to follow up with copyright expert and primary care physician. Patient was also instructed to keep checking back with [facility] for continued results from drawn lab work. At time of discharge patient was hemodynamically stable. Questions regarding care and discharge were answered and patient was in understanding. Patient was instructed to return to nearest ED if worsening of his chest discomfort or cardiopulmonary symptoms. - Date & Time of H&P Date of H&P: 07/12/17 Time of H&P: 20:06 Discharge Exam - Head Exam Head Exam: ATRAUMATIC, NORMAL INSPECTION, NORMOCEPHALIC - Eye Exam Eye Exam: EOMI, PERRL - ENT Exam ENT Exam: Mucous Membranes Moist - Respiratory Exam Respiratory Exam: Clear to PA & Lateral, NORMAL BREATHING PATTERN, UNREMARKABLE. absent: Rales, Rhonchi, Wheezes - Cardiovascular Exam Cardiovascular Exam: REGULAR RHYTHM, +S1, +S2 - GI/Abdominal Exam GI & Abdominal Exam: Normal Bowel Sounds, Soft. absent: Distended, Guarding, Rigid, Tenderness - Extremities Exam Extremities exam: normal inspection, pedal pulses present - Neurological Exam Neurological exam: Alert, CN II-XII Intact, Normal Gait, Oriented x3 - Psychiatric Exam Psychiatric exam: Normal Affect, Normal Mood - Skin Skin Exam: Dry, Normal Color, Warm Discharge Plan - Discharge Medications Prescriptions: Indomethacin [Indocin] 50 mg PO TID 5 Days cap Metoprolol Tartrate [Lopressor] 25 mg PO BID 30 Days tab Oseltamivir [Tamiflu Cap] 75 mg PO BID 8 Days cap Pantoprazole [Protonix EC Tab] 40 mg PO ACB #30 ect - Follow Up Plan Condition: GOOD Disposition: HOME/ ROUTINE Instructions: Myocarditis Additional Instructions: - Take medications as prescribed to you - Follow up with primary care doctor in 1 to 2 weeks after discharge - Follow up with copyright expert with in 1 to 2 weeks after discharge - Continue to monitor your symptoms of fever and chest discomfort - If you experience return or worsening of your chest pain please go to the nearest ED Referrals: Felicita Miranda DO [Primary Care Provider] - Ilan Dawn MD [Staff Provider] - <All Sewell - Last Filed: 07/14/17 14:58> Provider - Provider Date of Admission: 07/12/17 18:56 Attending physician: All Sewell MD Primary care physician: Felicita Miranda DO Hospital Course - Lab Results Lab Results: Micro Results 07/12/17 22:40 Naris MRSA Culture (Admit) - Final MRSA NOT DETECTED 07/12/17 22:32 Urine Urine Culture - Final No Growth (<1,000 CFU/ML) Most Recent Lab Values WBC 6.9 10^3/ul (4.5-11.0) D 07/14/17 05:00 RBC 4.36 10^6/uL (3.5-6.1) 07/14/17 05:00 Hgb 13.2 g/dL (14.0-18.0) L 07/14/17 05:00 Hct 39.2 % (42.0-52.0) L 07/14/17 05:00 MCV 89.9 fl (80.0-105.0) 07/14/17 05:00 MCH 30.3 pg (25.0-35.0) 07/14/17 05:00 MCHC 33.7 g/dl (31.0-37.0) 07/14/17 05:00 RDW 12.5 % (11.5-14.5) 07/14/17 05:00 Plt Count 221 10^3/uL (120.0-450.0) 07/14/17 05:00 MPV 10.4 fl (7.0-11.0) 07/14/17 05:00 Gran % 52.9 % (50.0-68.0) 07/12/17 17:10 Lymph % (Auto) 28.2 % (22.0-35.0) 07/12/17 17:10 Smith % (Auto) 18.0 % (1.0-6.0) H 07/12/17 17:10 Eos % (Auto) 0.6 % (1.5-5.0) L 07/12/17 17:10 Baso % (Auto) 0.3 % (0.0-3.0) 07/12/17 17:10 Gran # 7.42 (1.4-6.5) H 07/12/17 17:10 Lymph # (Auto) 4.0 (1.2-3.4) H 07/12/17 17:10 Smith # (Auto) 2.5 (0.1-0.6) H 07/12/17 17:10 Eos # (Auto) 0.1 (0.0-0.7) 07/12/17 17:10 Baso # (Auto) 0.04 K/mm3 (0.0-2.0) 07/12/17 17:10 ESR 30 mm/hr (0.0-15.0) H 07/13/17 12:20 PT 13.5 SECONDS (9.4-12.5) H 07/12/17 17:10 INR 1.18 (0.93-1.08) H 07/12/17 17:10 APTT 28.8 Seconds (25.1-36.5) 07/12/17 17:10 D-Dimer, Quantitative 375 ng/mL (0-243) H 07/12/17 17:10 pO2 116 mm/Hg (30-55) H 07/12/17 20:21 VBG pH 7.46 (7.32-7.43) H 07/12/17 20:21 VBG pCO2 36.0 (40-60) L 07/12/17 20:21 VBG HCO3 25.6 mmol/l (21-28) 07/12/17 20:21 VBG Total CO2 26.7 mmol.L (22-28) 07/12/17 20:21 VBG O2 Sat (Calc) 99.5 % (40-65) H 07/12/17 20:21 VBG Base Excess 2.0 mmol/L (0.0-2.0) 07/12/17 20:21 VBG Potassium 3.9 mmol/L (3.6-5.2) 07/12/17 20:21 Sodium 138.0 mmol/L (132-148) 07/12/17 20:21 Chloride 106.0 mmol/L (98-107) 07/12/17 20:21 Glucose 120 mg/dl (75-110) H 07/12/17 20:21 Lactate 1.2 mmol/L (0.7-2.1) 07/12/17 20:21 FiO2 21.0 % 07/12/17 20:21 Sodium 144 mmol/L (132-148) 07/14/17 05:00 Potassium 4.0 mmol/L (3.6-5.0) 07/14/17 05:00 Chloride 109 mmol/L (98-107) H 07/14/17 05:00 Carbon Dioxide 25 mmol/L (21-33) 07/14/17 05:00 Anion Gap 13 (10-20) 07/14/17 05:00 BUN 11 mg/dL (7-21) 07/14/17 05:00 Creatinine 0.7 mg/dl (0.8-1.5) L 07/14/17 05:00 Est GFR ( Amer) > 60 07/14/17 05:00 Est GFR (Non-Af Amer) > 60 07/14/17 05:00 Random Glucose 110 mg/dL (70-110) 07/14/17 05:00 Calcium 9.1 mg/dL (8.4-10.5) 07/14/17 05:00 Phosphorus 3.2 mg/dL (2.5-4.5) 07/14/17 05:00 Magnesium 2.0 mg/dL (1.7-2.2) 07/14/17 05:00 Total Bilirubin 0.3 mg/dL (0.2-1.3) 07/14/17 05:00 AST 50 U/L (17-59) 07/14/17 05:00 ALT 77 U/L (7-56) H 07/14/17 05:00 Alkaline Phosphatase 66 U/L (38-126) 07/14/17 05:00 Lactate Dehydrogenase 590 U/L (333-699) 07/13/17 05:50 Total Creatine Kinase 356 U/L (35-230) H 07/13/17 05:50 CK-MB (CK-2) 20.6 ng/mL (0.0-3.6) H 07/13/17 05:50 CK-MB (CK-2) % 5.8 % (2.5-3.0) H 07/13/17 05:50 Troponin I 4.76 ng/mL H* D 07/13/17 05:50 NT-Pro-B Natriuret Pep 683 pg/mL (0-450) H 07/12/17 17:10 Total Protein 6.7 g/dL (5.8-8.3) 07/14/17 05:00 Albumin 3.5 g/dL (3.0-4.8) 07/14/17 05:00 Globulin 3.1 gm/dL 07/14/17 05:00 Albumin/Globulin Ratio 1.1 (1.1-1.8) 07/14/17 05:00 Triglycerides 155 mg/dL (35-160) 07/13/17 07:25 Cholesterol 208 mg/dL (130-200) H 07/13/17 07:25 LDL Cholesterol Direct 133 mg/dL (0-129) H 07/13/17 07:25 HDL Cholesterol 34 mg/dL (29-60) 07/13/17 07:25 Lipase 71 U/L (23-300) 07/12/17 17:10 Procalcitonin 0.18 NG/ML (0.19-0.49) L 07/12/17 20:05 Free T4 0.79 ng/dL (0.78-2.19) 07/13/17 20:20 TSH 3rd Generation 5.17 mIU/mL (0.46-4.68) H 07/13/17 20:20 Venous Blood Potassium 3.9 mmol/L (3.6-5.2) 07/12/17 20:21 Urine Color Yellow (YELLOW) 07/12/17 21:30 Urine Appearance Clear (CLEAR) 07/12/17 21:30 Urine pH 6.0 (4.7-8.0) 07/12/17 21:30 Ur Specific Concho 1.010 (1.005-1.035) 07/12/17 21:30 Urine Protein Negative mg/dL (<30 mg/dL) 07/12/17 21:30 Urine Glucose (UA) Negative mg/dL (NEGATIVE) 07/12/17 21:30 Urine Ketones Negative mg/dL (NEGATIVE) 07/12/17 21:30 Urine Blood Negative (NEGATIVE) 07/12/17 21:30 Urine Nitrate Negative (NEGATIVE) 07/12/17 21:30 Urine Bilirubin Negative (NEGATIVE) 07/12/17 21:30 Urine Urobilinogen 0.2 E.U./dL (<1 E.U./dL) 07/12/17 21:30 Ur Leukocyte Esterase Negative Enrico/uL (NEGATIVE) 07/12/17 21:30 Urine Opiates Screen Negative (NEGATIVE) 07/12/17 21:30 Urine Methadone Screen Negative (NEGATIVE) 07/12/17 21:30 Ur Barbiturates Screen Negative (NEGATIVE) 07/12/17 21:30 Ur Phencyclidine Scrn Negative (NEGATIVE) 07/12/17 21:30 Ur Amphetamines Screen Negative (NEGATIVE) 07/12/17 21:30 U Benzodiazepines Scrn Negative (NEGATIVE) 07/12/17 21:30 U Oth Cocaine Metabols Negative (NEGATIVE) 07/12/17 21:30 U Cannabinoids Screen Negative (NEGATIVE) 07/12/17 21:30 EBV Capsid Ag IgG Ab 219.00 U/mL H 07/13/17 10:30 EBV Capsid Ag IgM Ab <36.00 U/mL 07/13/17 10:30 Hepatitis A IgM Ab Negative (NEGATIVE) 07/13/17 12:00 Hep Bs Antigen Negative (NEGATIVE) 07/13/17 12:00 Hep B Core IgM Ab Negative (NEGATIVE) 07/13/17 12:00 Hepatitis C Antibody Negative (NEGATIVE) 07/13/17 12:00 HIV 1&2 Ag/Ab, 4th Gen Nonreactive (Nonreactive) 07/13/17 05:50 Influenza Typ A,B (EIA) Negative for flu a/b (NEGATIVE) 07/12/17 17:10 Attending/Attestation - Attestation I have personally seen and examined this patient.: Yes I have fully participated in the care of the patient.: Yes I have reviewed all pertinent clinical information, including history, physical exam and plan: Yes Notes (Text): 07/14/17 14:57 42 year old male with past medical history o seizure disorder and anxiety who presented with complaint of fever and chest pain. EKG showed diffuse ST elevations and he had elevated cardiac enzymes. He was seen by cardiology and underwent cardiac cath which showed unremarkable coronary arteries. He was started on iindomethacin for suspected pericarditis +/- myocarditis which improvement of symptoms. His leukocytosis and mild transaminitis has improved and he has been afebrile for almost 48 hrs. Patient is discharged home to follow up with his pmd. Follow up with copyright expert. All Sewell MD Hospitalist.
--- NOTE | 2017-07-14 14:52 | PN ---
DATE: 07/14/2017 CARDIOLOGY FOLLOWUP SUBJECTIVE: The patient's chest pain is better, on nonsteroidal anti-inflammatories. PHYSICAL EXAMINATION VITAL SIGNS: Blood pressure is 117/73, the heart rate is in the 90s. NECK: Negative JVD. LUNGS: Without rales. HEART: Reveals S1, S2. EXTREMITIES: Without edema. The right groin site is stable. LABORATORY DATA: Hemoglobin is 13 and sed rate is 30. BUN and creatinine are unremarkable. Echocardiogram reveals no pericardial effusion. IMPRESSION: Pericarditis with involvement of myocarditis is to explain his elevated troponins. We will continue his Indocin. We will transfer to the floor and ambulate. Ilan Dawn MD
[2017-07-14 15:48] VITALS: BP 129/57; PULSE 86; RESP 29; O2SAT 98
[2017-07-15] MEDS ORDERED: Pantoprazole 40 mg EC Tab PO SCH (07:30)
== END 2017-07-14 16:00 | disposition home or self-care (01) | DRG 287 ==
LOC: ED 16:27 → ERH 18:56 → ICU 22:15
PROVIDERS: ADMIT Hospitalist; ATTEND Internal Medicine
PROC: 4A023N7 Measurement of Cardiac Sampling and Pressure, Left Heart, Percutaneous Approach (ICD-10-PCS; principal; 2017-07-13)
PROC: B2111ZZ Fluoroscopy of Multiple Coronary Arteries using Low Osmolar Contrast (ICD-10-PCS; 2017-07-13)
PROC: B2151ZZ Fluoroscopy of Left Heart using Low Osmolar Contrast (ICD-10-PCS; 2017-07-13)
DX: I51.4 Myocarditis, unspecified (principal); I31.9 Disease of pericardium, unspecified; R65.10 Systemic inflammatory response syndrome (SIRS) of non-infectious origin without acute organ dysfunction; B34.9 Viral infection, unspecified; D72.829 Elevated white blood cell count, unspecified; E66.9 Obesity, unspecified; Z68.36 Body mass index [BMI] 36.0-36.9, adult; F41.9 Anxiety disorder, unspecified; G40.909 Epilepsy, unspecified, not intractable, without status epilepticus; Z79.01 Long term (current) use of anticoagulants; Z79.82 Long term (current) use of aspirin; Z79.1 Long term (current) use of non-steroidal anti-inflammatories (NSAID); Z80.6 Family history of leukemia; Z82.49 Family history of ischemic heart disease and other diseases of the circulatory system